=== PATIENT | male | born 1950 | race Caucasian/White ===

== ENCOUNTER 2017-02-18 19:14 | Inpatient (IN) | payer BC ==
[~2017-02-18] VITALS: Ht 193 cm; Wt 100.4 kg
[~2017-02-18 19:14] MED LIST: ALBU18HF INH; AMLO5TAB2 PO; AMLO5TAB4 PO; AMOX1TAB12 PO; ASPI-770 PO; ASPIRIN PO; BUDE10.2 INH; CEPH-368 PO; CLON0.1T PO; CYCL-259 PO; DIAZ10TA4 PO; ENAL20TA PO; ERYT250C8 PO; ERYT250T14 PO; FENO134C PO; FENT-58 TD; FINA5TAB4 PO; FISH OIL PO; FLUO20CA8 PO; FLUT1POW2 INH; FURO20TA3 PO; GABA600T PO; GABA600T2 PO; GEMF600T PO; GEMF600T3 PO; HYDR-3307 PO; INSU100I13 SC; IPRA4AER INH; IRON PO; LEVO137T3 PO; LORA-445 PO; MEPE50TA PO; METAMUCIL425 GM PO; METF850T2 PO; METO-93 PO; METO10TA82 PO; MORP30TA81 PO; MULT-658 PO; OMEG300C PO; OMEP40CA6 PO; ONDA4TAB10 PO; OXYC-229 PO; OXYC10TA6 PO; PROM25SU35 PO; SENN-31 PO; SIMV20TA PO; TAMS-11 PO; TAMS0.4C2 PO; TEMA30CA PO; TRAZ50TA18 PO; VITAMIN C PO; VITAMIN D PO; VITAMIN E PO
[2017-02-18] MEDS ORDERED: SODIUM CHLORIDE FLUSH 10ML SYR IVF ONE (20:00)
[2017-02-18 20:07] LABS: BLOOD UREA NITROGEN 19 mg/dL (7-18)
[2017-02-18 20:11] LABS: IS PT STATUS REG ER OR PRE ER? YES
[2017-02-18] MEDS ORDERED: OXYC10TA6 PO (20:42)
[2017-02-18] MEDS ORDERED: DULO30CA2 PO (20:42)
[2017-02-18] MEDS ORDERED: INSU100V8 SQ (20:42)
[2017-02-18] MEDS ORDERED: TIZA4CAP PO (20:42)
[2017-02-18] MEDS ORDERED: TAMS0.4C2 PO (20:42)
[2017-02-18] MEDS: METOPROLOL SUCCINATE 100 MG TAB.ER.24H PO SCH (21:30)
[2017-02-18] MEDS: TIZANIDINE 4MG TABLET PO SCH (21:30)
[2017-02-18] MEDS ORDERED: FENTANYL TD SCH (21:30)
[2017-02-18] MEDS ORDERED: ACETAMINOPHEN 325 MG TABLET PO PRN (21:30)
[2017-02-18] MEDS: AMLODIPINE 5 MG TABLET PO SCH (21:30)
[2017-02-18] MEDS: SIMVASTATIN 20 MG TABLET PO SCH (21:30)
[2017-02-18] MEDS: INSULIN DETEMIR 100 UNITS/ML, PEN SQ-INSULIN SCH (21:30)
[2017-02-18] MEDS ORDERED: PROMETHAZINE 25 MG/ML, 1ML IM PRN (21:30)
[2017-02-18] MEDS ORDERED: LABETALOL 5MG/ML, 20ML IV PRN (21:30)
[2017-02-18] MEDS: GABAPENTIN 300 MG CAPSULE PO SCH (21:30)
[2017-02-18] MEDS ORDERED: ONDANSETRON 2MG/ML, 2ML IVP PRN (21:30)
[2017-02-18] MEDS ORDERED: ONDANSETRON ODT 4 MG PO PRN (21:30)
[2017-02-18] MEDS ORDERED: ERYTHROMYCIN 200 MG/5 ML ORAL SOL PO SCH (21:30)
[2017-02-18 23:55] VITALS: BP 143/84
[2017-02-19] MEDS ORDERED: FENTANYL PATCH MC SCH (00:30)
[2017-02-19] MEDS: OXYcodone IR 5MG TABLET PO PRN ×3 (00:45→21:17)
[2017-02-19] MEDS: SODIUM CHLORIDE 0.9% 1,000 ML IV SCH ×3 (00:46→20:06)
[2017-02-19] MEDS: ENOXAPARIN 40 MG/0.4 ML SQ SCH ×2 (01:09→20:57)
[2017-02-19] MEDS: NICOTINE 14MG/24 HR PATCH.TD24 TD SCH ×2 (01:10→20:57)
[2017-02-19 01:18] VITALS: BP 143/84
[2017-02-19] MEDS: ASPIRIN 325 MG TABLET EC PO SCH (05:38)
[2017-02-19] MEDS: ERYTHROMYCIN 200 MG/5 ML ORAL SOL PO SCH ×4 (05:38→20:57)
[2017-02-19] MEDS: GABAPENTIN 300 MG CAPSULE PO SCH ×4 (05:38→20:56)
[2017-02-19 06:19] LABS: BLOOD UREA NITROGEN 19 mg/dL (7-18)
[2017-02-19 06:28] LABS: ASPARTATE AMINO TRANSFERASE 19 U/L (15-37)
[2017-02-19] MEDS: INSULIN REGULAR 100 UNITS/ML, 3ML VIAL SQ-INSULIN SCH ×4 (07:00→21:00)
[2017-02-19] MEDS ORDERED: LEVOTHYROXINE 137 MCG TABLET PO SCH (09:00)
[2017-02-19] MEDS: metFORMIN 850 MG TABLET PO SCH ×3 (09:00→20:56)
[2017-02-19] MEDS: FLUTICASONE/VILANTEROL 200-25MCG/INH INH SCH (09:00)
[2017-02-19] MEDS: SENNA/DOCUSATE TABLET PO SCH (09:00)
[2017-02-19 09:41] VITALS: BP 103/58
[2017-02-19] MEDS: TIZANIDINE 4MG TABLET PO SCH ×2 (10:03→20:57)
[2017-02-19] MEDS: METOPROLOL SUCCINATE 100 MG TAB.ER.24H PO SCH ×2 (10:03→20:56)
[2017-02-19] MEDS: AMLODIPINE 5 MG TABLET PO SCH ×2 (10:04→20:56)
[2017-02-19] MEDS: DULOXETINE 30 MG CAPSULE.DR PO SCH (10:04)
[2017-02-19] MEDS: TAMSULOSIN 0.4 MG CAP.ER.24H PO SCH (10:06)
[2017-02-19] MEDS: FUROSEMIDE 20 MG TABLET PO SCH (10:07)
[2017-02-19] MEDS: FINASTERIDE 5 MG TABLET PO SCH (10:07)
[2017-02-19] MEDS: FENOFIBRATE 145 MG TABLET PO SCH (10:10)
[2017-02-19] MEDS: OMEPRAZOLE 20 MG CAPSULE.DR PO SCH (10:11)
[2017-02-19 16:00] VITALS: BP 135/71
[2017-02-19] MEDS ORDERED: ALBUTEROL SULFATE PO PRN ×2 (16:00→16:08)
[2017-02-19 20:45] VITALS: BP 147/84
[2017-02-19] MEDS: SIMVASTATIN 20 MG TABLET PO SCH (20:56)
[2017-02-19] MEDS: INSULIN DETEMIR 100 UNITS/ML, PEN SQ-INSULIN SCH (20:58)
[2017-02-19] MEDS: CEFUROXIME 500 MG TABLET PO SCH (21:00)
[2017-02-20 02:00] VITALS: BP 141/78
[2017-02-20] MEDS: SODIUM CHLORIDE 0.9% 1,000 ML IV SCH ×2 (03:59→12:00)
[2017-02-20] MEDS ORDERED: DEXTROSE 50%, 50ML SYRINGE IVPush PRN (04:30)
[2017-02-20] MEDS ORDERED: GLUCAGON 1 MG IM PRN (04:30)
[2017-02-20] MEDS ORDERED: DEXTROSE 4 GM TAB.CHEW PO PRN (04:30)
[2017-02-20] MEDS: LEVOTHYROXINE 137 MCG TABLET PO SCH ×2 (06:00→10:22)
[2017-02-20] MEDS: GABAPENTIN 300 MG CAPSULE PO SCH ×4 (06:00→20:39)
[2017-02-20] MEDS: ERYTHROMYCIN 200 MG/5 ML ORAL SOL PO SCH ×4 (06:00→20:38)
[2017-02-20] MEDS: ASPIRIN 325 MG TABLET EC PO SCH (06:00)
[2017-02-20 08:06] VITALS: BP 179/88
[2017-02-20] MEDS ORDERED: LORazepam 2 MG/ML, 1ML IVPush ONE (08:30)
[2017-02-20] MEDS: INSULIN REGULAR 100 UNITS/ML, 3ML VIAL SQ-INSULIN SCH ×4 (08:30→20:40)
[2017-02-20] MEDS ORDERED: MIDAZOLAM 1 MG/ML, 5ML ONE (08:31)
[2017-02-20] MEDS ORDERED: FENTANYL PF 100 MCG/2ML ONE ×2 (08:31)
[2017-02-20] MEDS ORDERED: FLUMAZENIL 0.1 MG/1 ML, 5ML ONE (08:31)
[2017-02-20] MEDS ORDERED: NALOXONE 1 MG/ML, 2ML ONE (08:31)
[2017-02-20] MEDS: FLUTICASONE/VILANTEROL 200-25MCG/INH INH SCH (09:00)
[2017-02-20] MEDS: SENNA/DOCUSATE TABLET PO SCH (09:00)
[2017-02-20] MEDS: SODIUM CHLORIDE FLUSH 10ML SYR IVF SCH ×2 (10:08→20:38)
[2017-02-20] MEDS: CEFUROXIME 500 MG TABLET PO SCH ×2 (10:21→20:40)
[2017-02-20] MEDS: DULOXETINE 30 MG CAPSULE.DR PO SCH (10:21)
[2017-02-20] MEDS: TIZANIDINE 4MG TABLET PO SCH ×2 (10:21→20:39)
[2017-02-20] MEDS: AMLODIPINE 5 MG TABLET PO SCH ×2 (10:21→20:39)
[2017-02-20] MEDS: metFORMIN 850 MG TABLET PO SCH ×3 (10:22→20:39)
[2017-02-20] MEDS: TAMSULOSIN 0.4 MG CAP.ER.24H PO SCH (10:22)
[2017-02-20] MEDS: FUROSEMIDE 20 MG TABLET PO SCH (10:22)
[2017-02-20] MEDS: METOPROLOL SUCCINATE 100 MG TAB.ER.24H PO SCH ×2 (10:23→20:39)
[2017-02-20] MEDS: FINASTERIDE 5 MG TABLET PO SCH (10:23)
[2017-02-20] MEDS: FENOFIBRATE 145 MG TABLET PO SCH (10:23)
[2017-02-20] MEDS: OMEPRAZOLE 20 MG CAPSULE.DR PO SCH (10:23)
[2017-02-20 10:29] VITALS: BP 165/98
[2017-02-20] MEDS: OXYcodone IR 5MG TABLET PO PRN ×3 (13:39→23:41)
[2017-02-20 13:52] VITALS: BP 155/85
[2017-02-20] MEDS ORDERED: CLOPIDOGREL 300 MG TABLET PO ONE (15:00)
[2017-02-20 19:14] VITALS: BP 161/88
[2017-02-20] MEDS: SIMVASTATIN 20 MG TABLET PO SCH (20:38)
[2017-02-20] MEDS: ENOXAPARIN 40 MG/0.4 ML SQ SCH (20:41)
[2017-02-20] MEDS: INSULIN DETEMIR 100 UNITS/ML, PEN SQ-INSULIN SCH (20:41)
[2017-02-20] MEDS: NICOTINE 14MG/24 HR PATCH.TD24 TD SCH (20:42)
[2017-02-21 01:34] VITALS: BP 155/89
[2017-02-21] MEDS: TEMPLATE NON-FORMULARY MED. (albuterol sulfate 1 PUFF) IH PRN (02:21)
[2017-02-21] MEDS: ASPIRIN 325 MG TABLET EC PO SCH (05:36)
[2017-02-21] MEDS: GABAPENTIN 300 MG CAPSULE PO SCH ×3 (05:36→15:58)
[2017-02-21] MEDS: ERYTHROMYCIN 200 MG/5 ML ORAL SOL PO SCH ×4 (05:36→21:00)
[2017-02-21] MEDS: INSULIN REGULAR 100 UNITS/ML, 3ML VIAL SQ-INSULIN SCH ×4 (07:00→21:00)
[2017-02-21 07:38] VITALS: BP 151/89
[2017-02-21] MEDS: FLUTICASONE/VILANTEROL 200-25MCG/INH INH SCH (07:54)
[2017-02-21] MEDS: METOPROLOL SUCCINATE 100 MG TAB.ER.24H PO SCH ×2 (07:55→21:00)
[2017-02-21] MEDS: TIZANIDINE 4MG TABLET PO SCH (07:55)
[2017-02-21] MEDS: FENOFIBRATE 145 MG TABLET PO SCH (07:55)
[2017-02-21] MEDS: SENNA/DOCUSATE TABLET PO SCH (07:56)
[2017-02-21] MEDS: AMLODIPINE 5 MG TABLET PO SCH ×2 (07:56→21:00)
[2017-02-21] MEDS: TAMSULOSIN 0.4 MG CAP.ER.24H PO SCH (07:56)
[2017-02-21] MEDS: FINASTERIDE 5 MG TABLET PO SCH (07:56)
[2017-02-21] MEDS: FUROSEMIDE 20 MG TABLET PO SCH (07:56)
[2017-02-21] MEDS: DULOXETINE 30 MG CAPSULE.DR PO SCH (07:56)
[2017-02-21] MEDS: metFORMIN 850 MG TABLET PO SCH ×2 (07:56→15:58)
[2017-02-21] MEDS: OMEPRAZOLE 20 MG CAPSULE.DR PO SCH (07:56)
[2017-02-21] MEDS: CEFUROXIME 500 MG TABLET PO SCH (07:57)
[2017-02-21] MEDS: SODIUM CHLORIDE FLUSH 10ML SYR IVF SCH (07:59)
[2017-02-21 10:39] LABS: BLOOD UREA NITROGEN 19 mg/dL (7-18)
[2017-02-21 13:15] VITALS: BP 158/85
[2017-02-21] MEDS: CLOPIDOGREL 75 MG TABLET PO SCH (15:00)
[2017-02-21] MEDS ORDERED: HEPARIN 1,000 UNITS/ML, 10ML ONE ×2 (15:43→19:52)
[2017-02-21] MEDS ORDERED: PAPAVERINE 30 MG/ML, 2ML ONE (15:43)
[2017-02-21] MEDS ORDERED: BUPIVACAINE/PF-EPI 0.25% 1:200K ONE (15:43)
[2017-02-21] MEDS ORDERED: PROTAMINE SULFATE 10 MG/ML, 5ML ONE ×2 (15:43→19:52)
[2017-02-21] MEDS ORDERED: BACITRACIN 50,000 UNIT ONE (15:44)
[2017-02-21] MEDS ORDERED: THROMBIN 5,000 UNIT VIAL TP ONE ×3 (15:44→20:20)
[2017-02-21] MEDS ORDERED: LIDOCAINE 2% 100MG/5ML SYRINGE ONE (17:35)
[2017-02-21] MEDS ORDERED: CEFAZOLIN 1,000 MG ONE (17:35)
[2017-02-21] MEDS ORDERED: PROPOFOL 10 MG/ML, 20ML ONE (17:35)
[2017-02-21] MEDS ORDERED: ESMOLOL 100 MG/10 ML ONE (17:35)
[2017-02-21] MEDS ORDERED: PROTAMINE SULFATE 10 MG/ML, 25ML ONE (17:35)
[2017-02-21] MEDS ORDERED: ROCURONIUM 10 MG/ML ONE (17:35)
[2017-02-21] MEDS ORDERED: FENTANYL PF 250 MCG/5ML ONE (17:40)
[2017-02-21] MEDS ORDERED: hydrALAzine 20 MG/ML, 1ML IV PRN (19:00)
[2017-02-21] MEDS ORDERED: OXYcodone 5 MG/5 ML ORAL.SOL UDC PO PRN (19:00)
[2017-02-21] MEDS ORDERED: ONDANSETRON 2MG/ML, 2ML IVPush PRN (19:00)
[2017-02-21] MEDS ORDERED: PROMETHAZINE 25 MG/ML, 1ML IV PRN (19:00)
[2017-02-21] MEDS ORDERED: LABETALOL 5MG/ML, 20ML IV PRN (19:00)
[2017-02-21] MEDS ORDERED: FENTANYL PF 100 MCG/2ML ONE ×2 (20:56→22:56)
[2017-02-21] MEDS ORDERED: HYDROmorphone 2 MG/ML, 1ML ONE (20:56)
[2017-02-21] MEDS: FENTANYL PF 100 MCG/2ML IV PRN ×5 (21:00→23:43)
[2017-02-21] MEDS: PHENYLEPHRINE 10 MG in SODIUM CHLORIDE 0.9% 249 ML IV PRN ×9 (21:20→23:42)
[2017-02-21] MEDS ORDERED: ICN FENTANYL 4MCG/ML IV IVPush PRN (21:30)
[2017-02-21] MEDS: HYDROmorphone 1 MG/ML, 1ML IV PRN ×5 (21:40→22:39)
[2017-02-21] MEDS ORDERED: ONDANSETRON 2MG/ML, 2ML ONE (22:13)
[2017-02-21] MEDS ORDERED: OXYcodone 5 MG/5 ML ORAL.SOL UDC ONE (23:45)
[2017-02-22] MEDS: PHENYLEPHRINE 10 MG in SODIUM CHLORIDE 0.9% 249 ML IV PRN (00:02)
[2017-02-22] MEDS: SODIUM CHLORIDE FLUSH 10ML SYR IVF SCH ×3 (00:25→20:51)
[2017-02-22] MEDS: CEFUROXIME 500 MG TABLET PO SCH ×3 (01:51→20:50)
[2017-02-22] MEDS: metFORMIN 850 MG TABLET PO SCH ×3 (01:52→16:00)
[2017-02-22] MEDS: GABAPENTIN 300 MG CAPSULE PO SCH ×5 (01:52→20:50)
[2017-02-22] MEDS: TIZANIDINE 4MG TABLET PO SCH ×3 (01:52→20:50)
[2017-02-22] MEDS: SIMVASTATIN 20 MG TABLET PO SCH ×2 (01:52→20:50)
[2017-02-22] MEDS: NICOTINE 14MG/24 HR PATCH.TD24 TD SCH ×2 (01:53→21:00)
[2017-02-22] MEDS: INSULIN DETEMIR 100 UNITS/ML, PEN SQ-INSULIN SCH ×2 (01:53→20:58)
[2017-02-22] MEDS: LACTATED RINGERS 1,000 ML IV SCH ×2 (02:24→12:18)
[2017-02-22] MEDS: FENTANYL PF 100 MCG/2ML IVPush PRN ×3 (02:25→16:20)
[2017-02-22] MEDS: PHENYLEPHRINE 80 MG in SODIUM CHLORIDE 0.9% 242 ML IV PRN (03:15)
[2017-02-22 04:00] VITALS: BP 110/62
[2017-02-22] MEDS ORDERED: DIAZEPAM 5 MG TABLET ONE ×2 (05:17→13:55)
[2017-02-22] MEDS: DIAZEPAM 10 MG TABLET PO PRN ×2 (05:18→13:57)
[2017-02-22] MEDS: OXYcodone IR 5MG TABLET PO PRN ×4 (05:19→18:12)
[2017-02-22 05:28] LABS: ASPARTATE AMINO TRANSFERASE 58 U/L (15-37); BLOOD UREA NITROGEN 22 mg/dL (7-18)
[2017-02-22] MEDS: ERYTHROMYCIN 200 MG/5 ML ORAL SOL PO SCH ×4 (06:27→20:50)
[2017-02-22] MEDS: LEVOTHYROXINE 137 MCG TABLET PO SCH (06:28)
[2017-02-22] MEDS: INSULIN REGULAR 100 UNITS/ML, 3ML VIAL SQ-INSULIN SCH ×4 (07:00→21:00)
[2017-02-22] MEDS: CLOPIDOGREL 75 MG TABLET PO SCH (08:33)
[2017-02-22] MEDS: OMEPRAZOLE 20 MG CAPSULE.DR PO SCH (08:33)
[2017-02-22] MEDS: ASPIRIN 325 MG TABLET EC PO SCH (08:33)
[2017-02-22] MEDS: FINASTERIDE 5 MG TABLET PO SCH (08:33)
[2017-02-22] MEDS: TAMSULOSIN 0.4 MG CAP.ER.24H PO SCH (08:34)
[2017-02-22] MEDS: DULOXETINE 30 MG CAPSULE.DR PO SCH (08:34)
[2017-02-22] MEDS: FENOFIBRATE 145 MG TABLET PO SCH (08:34)
[2017-02-22] MEDS: SENNA/DOCUSATE TABLET PO SCH (08:34)
[2017-02-22] MEDS: FLUTICASONE/VILANTEROL 200-25MCG/INH INH SCH (08:35)
[2017-02-22] MEDS: AMLODIPINE 5 MG TABLET PO SCH (08:40)
[2017-02-22] MEDS: FUROSEMIDE 20 MG TABLET PO SCH (08:40)
[2017-02-22] MEDS: METOPROLOL SUCCINATE 100 MG TAB.ER.24H PO SCH (08:40)
[2017-02-22] MEDS ORDERED: MAGNESIUM SULFATE PMX 4GM/100M 100 ML IV ONE (16:00)
[2017-02-23] MEDS: OXYcodone IR 5MG TABLET PO PRN ×6 (01:17→22:15)
[2017-02-23] MEDS: LACTATED RINGERS 1,000 ML IV SCH (02:57)
[2017-02-23] MEDS: PHENYLEPHRINE 80 MG in SODIUM CHLORIDE 0.9% 242 ML IV PRN (02:58)
[2017-02-23 04:00] VITALS: BP 118/53
[2017-02-23 04:46] LABS: BLOOD UREA NITROGEN 16 mg/dL (7-18)
[2017-02-23 04:50] LABS: ASPARTATE AMINO TRANSFERASE 29 U/L (15-37)
[2017-02-23] MEDS: ERYTHROMYCIN 200 MG/5 ML ORAL SOL PO SCH ×4 (06:18→22:02)
[2017-02-23] MEDS: ASPIRIN 325 MG TABLET EC PO SCH (06:19)
[2017-02-23] MEDS: LEVOTHYROXINE 137 MCG TABLET PO SCH (06:19)
[2017-02-23] MEDS: GABAPENTIN 300 MG CAPSULE PO SCH ×4 (06:19→22:04)
[2017-02-23] MEDS: INSULIN REGULAR 100 UNITS/ML, 3ML VIAL SQ-INSULIN SCH ×4 (07:00→22:05)
[2017-02-23] MEDS: SENNA/DOCUSATE TABLET PO SCH (08:59)
[2017-02-23] MEDS: FINASTERIDE 5 MG TABLET PO SCH (08:59)
[2017-02-23] MEDS: TIZANIDINE 4MG TABLET PO SCH ×2 (08:59→22:04)
[2017-02-23] MEDS: FENOFIBRATE 145 MG TABLET PO SCH (08:59)
[2017-02-23] MEDS: OMEPRAZOLE 20 MG CAPSULE.DR PO SCH (09:00)
[2017-02-23] MEDS: FLUTICASONE/VILANTEROL 200-25MCG/INH INH SCH (09:00)
[2017-02-23] MEDS: TAMSULOSIN 0.4 MG CAP.ER.24H PO SCH (09:00)
[2017-02-23] MEDS: CLOPIDOGREL 75 MG TABLET PO SCH (09:00)
[2017-02-23] MEDS: CEFUROXIME 500 MG TABLET PO SCH ×2 (09:00→21:00)
[2017-02-23] MEDS: SODIUM CHLORIDE FLUSH 10ML SYR IVF SCH ×2 (09:00→22:15)
[2017-02-23] MEDS: DULOXETINE 30 MG CAPSULE.DR PO SCH (09:00)
[2017-02-23] MEDS: SODIUM CHLORIDE 0.9% 1,000 ML IV SCH ×3 (09:05→19:36)
[2017-02-23] MEDS ORDERED: DIAZEPAM 5 MG TABLET PO PRN (09:07)
[2017-02-23] MEDS: NICOTINE 14MG/24 HR PATCH.TD24 TD SCH (21:30)
[2017-02-23] MEDS: SIMVASTATIN 20 MG TABLET PO SCH (22:05)
[2017-02-23] MEDS: INSULIN DETEMIR 100 UNITS/ML, PEN SQ-INSULIN SCH (22:06)
[2017-02-23] MEDS: TRAZODONE 50MG TABLET PO PRN (22:15)
[2017-02-24] MEDS: SODIUM CHLORIDE 0.9% 1,000 ML IV SCH ×5 (00:08→20:12)
[2017-02-24 02:00] VITALS: BP 104/63
[2017-02-24] MEDS: OXYcodone IR 5MG TABLET PO PRN ×4 (02:20→21:59)
[2017-02-24] MEDS: ERYTHROMYCIN 200 MG/5 ML ORAL SOL PO SCH ×4 (06:22→20:14)
[2017-02-24] MEDS: LEVOTHYROXINE 137 MCG TABLET PO SCH (06:22)
[2017-02-24] MEDS: GABAPENTIN 300 MG CAPSULE PO SCH ×4 (06:23→20:14)
[2017-02-24] MEDS: ASPIRIN 325 MG TABLET EC PO SCH (06:23)
[2017-02-24 07:06] VITALS: BP 94/51
[2017-02-24] MEDS: INSULIN REGULAR 100 UNITS/ML, 3ML VIAL SQ-INSULIN SCH ×4 (08:00→20:12)
[2017-02-24] MEDS: TIZANIDINE 4MG TABLET PO SCH ×3 (09:00→20:15)
[2017-02-24] MEDS: FLUTICASONE/VILANTEROL 200-25MCG/INH INH SCH (09:00)
[2017-02-24] MEDS: CLOPIDOGREL 75 MG TABLET PO SCH (09:29)
[2017-02-24] MEDS: FENOFIBRATE 145 MG TABLET PO SCH (09:30)
[2017-02-24] MEDS: SODIUM CHLORIDE FLUSH 10ML SYR IVF SCH ×2 (09:30→20:14)
[2017-02-24] MEDS: DULOXETINE 30 MG CAPSULE.DR PO SCH (09:30)
[2017-02-24] MEDS: FINASTERIDE 5 MG TABLET PO SCH (09:30)
[2017-02-24] MEDS: CEFUROXIME 500 MG TABLET PO SCH ×2 (09:30→20:14)
[2017-02-24] MEDS: TAMSULOSIN 0.4 MG CAP.ER.24H PO SCH (09:30)
[2017-02-24] MEDS: OMEPRAZOLE 20 MG CAPSULE.DR PO SCH (09:30)
[2017-02-24] MEDS: SENNA/DOCUSATE TABLET PO SCH (09:58)
[2017-02-24 13:37] VITALS: BP 112/59
[2017-02-24 19:44] VITALS: BP 128/67
[2017-02-24] MEDS: INSULIN DETEMIR 100 UNITS/ML, PEN SQ-INSULIN SCH (20:13)
[2017-02-24] MEDS: NICOTINE 14MG/24 HR PATCH.TD24 TD SCH (20:15)
[2017-02-24] MEDS: SIMVASTATIN 20 MG TABLET PO SCH (20:15)
[2017-02-24] MEDS: TRAZODONE 50MG TABLET PO PRN (20:15)
[2017-02-24] MEDS ORDERED: DIAZEPAM 10 MG TABLET ONE (21:43)
[2017-02-24] MEDS: TEMPLATE NON-FORMULARY MED. (albuterol sulfate 1 PUFF) IH PRN (22:27)
[2017-02-25] MEDS: SODIUM CHLORIDE 0.9% 1,000 ML IV SCH ×3 (01:19→11:12)
[2017-02-25 01:43] VITALS: BP 123/66
[2017-02-25] MEDS: OXYcodone IR 5MG TABLET PO PRN ×3 (01:58→11:12)
[2017-02-25 04:59] LABS: BLOOD UREA NITROGEN 8 mg/dL (7-18)
[2017-02-25] MEDS: ERYTHROMYCIN 200 MG/5 ML ORAL SOL PO SCH ×2 (05:59→11:12)
[2017-02-25] MEDS: ASPIRIN 325 MG TABLET EC PO SCH (05:59)
[2017-02-25] MEDS: GABAPENTIN 300 MG CAPSULE PO SCH ×2 (05:59→11:12)
[2017-02-25] MEDS: LEVOTHYROXINE 137 MCG TABLET PO SCH (05:59)
[2017-02-25 07:15] VITALS: BP 123/61
[2017-02-25] MEDS: OMEPRAZOLE 20 MG CAPSULE.DR PO SCH (09:42)
[2017-02-25] MEDS: TIZANIDINE 4MG TABLET PO SCH (09:42)
[2017-02-25] MEDS: SENNA/DOCUSATE TABLET PO SCH (09:42)
[2017-02-25] MEDS: DULOXETINE 30 MG CAPSULE.DR PO SCH (09:42)
[2017-02-25] MEDS: CEFUROXIME 500 MG TABLET PO SCH (09:42)
[2017-02-25] MEDS: SODIUM CHLORIDE FLUSH 10ML SYR IVF SCH (09:42)
[2017-02-25] MEDS: FINASTERIDE 5 MG TABLET PO SCH (09:42)
[2017-02-25] MEDS: CLOPIDOGREL 75 MG TABLET PO SCH (09:42)
[2017-02-25] MEDS: TAMSULOSIN 0.4 MG CAP.ER.24H PO SCH (09:42)
[2017-02-25] MEDS: INSULIN REGULAR 100 UNITS/ML, 3ML VIAL SQ-INSULIN SCH ×2 (09:43→11:12)
[2017-02-25] MEDS: FENOFIBRATE 145 MG TABLET PO SCH (09:45)
[2017-02-25] MEDS: FLUTICASONE/VILANTEROL 200-25MCG/INH INH SCH (10:45)
[2017-02-25] MEDS ORDERED: CLOP75TA PO (14:09)
[2017-02-25] MEDS ORDERED: ASPI-650 PO (14:09)
== END 2017-02-25 15:03 | disposition home health service (06) | DRG 38 ==
LOC: SUATTDRO 21:00 → ED 21:04 → EDIP 22:19 → 4EST 23:22 → CCU 02-22 00:24 → 4EST 02-24 02:01
PROC: 0T9B70Z Drainage of Bladder with Drainage Device, Via Natural or Artificial Opening (ICD-10-PCS; 2017-02-19)
PROC: 03UL0KZ Supplement Left Internal Carotid Artery with Nonautologous Tissue Substitute, Open Approach (ICD-10-PCS; 2017-02-21)
PROC: 03CL0ZZ Extirpation of Matter from Left Internal Carotid Artery, Open Approach (ICD-10-PCS; principal; 2017-02-21 17:30)
DX: I65.22 Occlusion and stenosis of left carotid artery (principal); N17.9 Acute kidney failure, unspecified; F11.20 Opioid dependence, uncomplicated; D72.829 Elevated white blood cell count, unspecified; E11.42 Type 2 diabetes mellitus with diabetic polyneuropathy; E11.43 Type 2 diabetes mellitus with diabetic autonomic (poly)neuropathy; E11.65 Type 2 diabetes mellitus with hyperglycemia; K31.84 Gastroparesis; E78.5 Hyperlipidemia, unspecified; F17.210 Nicotine dependence, cigarettes, uncomplicated; E83.42 Hypomagnesemia; M54.9 Dorsalgia, unspecified; F40.240 Claustrophobia; I95.9 Hypotension, unspecified; G47.30 Sleep apnea, unspecified; I11.9 Hypertensive heart disease without heart failure; G89.29 Other chronic pain; J44.9 Chronic obstructive pulmonary disease, unspecified; N40.0 Benign prostatic hyperplasia without lower urinary tract symptoms; E89.0 Postprocedural hypothyroidism; F32.9 Major depressive disorder, single episode, unspecified; I25.10 Atherosclerotic heart disease of native coronary artery without angina pectoris; I25.2 Old myocardial infarction; Z86.73 Personal history of transient ischemic attack (TIA), and cerebral infarction without residual deficits; Z79.4 Long term (current) use of insulin; Z90.49 Acquired absence of other specified parts of digestive tract; Z91.013 Allergy to seafood; Z79.899 Other long term (current) drug therapy; Z79.82 Long term (current) use of aspirin; Z79.84 Long term (current) use of oral hypoglycemic drugs
CPT/HCPCS: 36415; 70450; 70551; 71010; 80048; 80053; 80061; 81003; 82040; 82436; 82570; 82962; 83036; 83735; 84100; 84133; 84300; 84439; 84443; 84484; 85025; 85610; 85730; 87081; 93005; 93306; 93880; C1729; J0690; J1170; J1644; J1650; J1815; J2250; J2405; J2704; J2720; J3010; 92523-GN; C1768; J2310; J2370; J2440; J3475; J7030; J7050; J7120

== ENCOUNTER 2017-03-02 02:17 | Inpatient (IN) | payer BC ==
[~2017-03-02] VITALS: Ht 193 cm; Wt 97.2 kg
[~2017-03-02 02:17] MED LIST changes: +ASPI-650 PO; +CLOP75TA PO; +DULO30CA2 PO; +INSU100V8 SQ; +TIZA4CAP PO
[2017-03-02] MEDS ORDERED: MORPHINE SULFATE 4 MG/ML, 1ML ONE (03:02)
[2017-03-02 03:04] LABS: BLOOD UREA NITROGEN 10 mg/dL (7-18)
[2017-03-02] MEDS ORDERED: ONDANSETRON 2MG/ML, 2ML ONE (03:04)
[2017-03-02 03:09] LABS: IS PT STATUS REG ER OR PRE ER? YES
[2017-03-02] MEDS ORDERED: MORPHINE SULFATE 4 MG/ML, 1ML IVPush PRN ×2 (03:30→04:00)
[2017-03-02] MEDS ORDERED: ONDANSETRON 2MG/ML, 2ML IVPush ONE (03:30)
[2017-03-02] MEDS ORDERED: FUROSEMIDE 40 MG/4 ML ONE (03:34)
[2017-03-02] MEDS ORDERED: ONDANSETRON 2MG/ML, 2ML IVPush PRN (04:00)
[2017-03-02] MEDS ORDERED: FUROSEMIDE 40 MG/4 ML IV ONE ×2 (04:00→12:30)
[2017-03-02 04:20] VITALS: BP 123/74
[2017-03-02] MEDS ORDERED: MAGNESIUM SULFATE PMX 2GM/50ML 50 ML IV ONE (05:00)
[2017-03-02] MEDS: GABAPENTIN 300 MG CAPSULE PO SCH ×4 (05:25→21:00)
[2017-03-02] MEDS ORDERED: SYMBICORT MC SCH (05:30)
[2017-03-02] MEDS ORDERED: POLYETHYLENE GLYCOL 17 GM PACKET PO PRN (06:00)
[2017-03-02] MEDS ORDERED: ENALAPRILAT 1.25 MG/ML, 2ML IVPush PRN (06:00)
[2017-03-02] MEDS ORDERED: ACETAMINOPHEN 325 MG TABLET PO PRN (06:00)
[2017-03-02] MEDS ORDERED: BISACODYL 10 MG SUPP PR PRN (06:00)
[2017-03-02] MEDS ORDERED: ONDANSETRON 2MG/ML, 2ML IVP PRN (06:00)
[2017-03-02] MEDS ORDERED: ASPIRIN 325 MG TABLET EC PO SCH (06:00)
[2017-03-02 06:56] VITALS: BP 128/71
[2017-03-02] MEDS ORDERED: MORPHINE SULFATE 4 MG/ML, 1ML IVPush ONE (07:00)
[2017-03-02] MEDS ORDERED: FUROSEMIDE 20 MG/2 ML IV SCH (07:30)
[2017-03-02] MEDS ORDERED: MAGNESIUM SULFATE PMX 4GM/100M 100 ML IV ONE (08:30)
[2017-03-02] MEDS ORDERED: TEMPLATE NON-FORMULARY MED. (Oxycodone Hcl** 10 MG) PO SCH (08:30)
[2017-03-02 08:33] VITALS: BP 139/81
[2017-03-02] MEDS: TAMSULOSIN 0.4 MG CAP.ER.24H PO SCH (08:35)
[2017-03-02] MEDS: HEPARIN 5,000 UNITS/ML, 1ML SQ SCH ×3 (08:35→22:39)
[2017-03-02] MEDS: TIZANIDINE 4MG TABLET PO SCH ×2 (08:35→21:01)
[2017-03-02] MEDS: MAGNESIUM CHLORIDE 64 MG TABLET.DR PO SCH ×2 (08:36→21:00)
[2017-03-02] MEDS: METOPROLOL SUCCINATE 100 MG TAB.ER.24H PO SCH ×2 (08:36→21:01)
[2017-03-02] MEDS: OMEPRAZOLE 20 MG CAPSULE.DR PO SCH (08:36)
[2017-03-02] MEDS: DULOXETINE 30 MG CAPSULE.DR PO SCH (08:36)
[2017-03-02] MEDS: CLOPIDOGREL 75 MG TABLET PO SCH (08:37)
[2017-03-02] MEDS: AMLODIPINE 5 MG TABLET PO SCH (08:37)
[2017-03-02] MEDS: FENOFIBRATE 145 MG TABLET PO SCH (08:37)
[2017-03-02] MEDS: FINASTERIDE 5 MG TABLET PO SCH (08:37)
[2017-03-02] MEDS: SENNA/DOCUSATE TABLET PO SCH (08:39)
[2017-03-02] MEDS ORDERED: TEMPLATE NON-FORMULARY MED. (Budesonide/Formoterol Fumarate (Symbicort 160-4.5 Mcg Inhaler INH SCH (09:00)
[2017-03-02] MEDS ORDERED: AMLODIPINE 5 MG TABLET PO SCH ×2 (09:00)
[2017-03-02] MEDS ORDERED: SENNA/DOCUSATE TABLET PO SCH (09:00)
[2017-03-02] MEDS ORDERED: metFORMIN 850 MG TABLET PO SCH (09:00)
[2017-03-02] MEDS ORDERED: LEVOTHYROXINE 137 MCG TABLET PO SCH (09:00)
[2017-03-02] MEDS: ALBUTEROL/IPRATROPIUM 2.5MG/0.5MG, 3 ML NPPB SCH ×4 (09:08→20:45)
[2017-03-02 09:51] LABS: IS PT STATUS REG ER OR PRE ER? NO
[2017-03-02] MEDS: methylPREDNISolone SOD SUCC 40 MG/ML IV SCH ×3 (09:51→21:02)
[2017-03-02] MEDS: LEVOTHYROXINE 125 MCG TABLET PO SCH (09:58)
[2017-03-02] MEDS: FLUTICASONE/VILANTEROL 200-25MCG/INH INH SCH (11:12)
[2017-03-02 12:06] VITALS: BP 114/67
[2017-03-02 12:08] LABS: BLOOD UREA NITROGEN 12 mg/dL (7-18)
[2017-03-02] MEDS: OXYcodone IR 5MG TABLET PO PRN ×3 (12:28→21:16)
[2017-03-02] MEDS ORDERED: DIAZEPAM 5 MG TABLET ONE ×2 (14:26)
[2017-03-02] MEDS: DIAZEPAM 10 MG TABLET PO PRN (14:29)
[2017-03-02 17:18] VITALS: BP 122/62
[2017-03-02] MEDS: FUROSEMIDE 20 MG/2 ML IV SCH (17:24)
[2017-03-02 19:25] VITALS: BP 115/65
[2017-03-02] MEDS: SIMVASTATIN 20 MG TABLET PO SCH (21:00)
[2017-03-02] MEDS: INSULIN DETEMIR 100 UNITS/ML, PEN SQ-INSULIN SCH (21:16)
[2017-03-02] MEDS: MORPHINE SULFATE 4 MG/ML, 1ML IVPush PRN (22:38)
[2017-03-03] MEDS: GUAIFENESIN 100 MG/5 ML, 5ML UDC PO PRN ×3 (00:26→21:13)
[2017-03-03 01:06] VITALS: BP 104/55
[2017-03-03] MEDS: methylPREDNISolone SOD SUCC 40 MG/ML IV SCH ×4 (02:58→21:13)
[2017-03-03 05:47] LABS: BLOOD UREA NITROGEN 22 mg/dL (7-18)
[2017-03-03 05:52] LABS: ASPARTATE AMINO TRANSFERASE 16 U/L (15-37)
[2017-03-03] MEDS: ASPIRIN 81 MG TABLET EC PO SCH (06:05)
[2017-03-03] MEDS: OXYcodone IR 5MG TABLET PO PRN ×4 (06:05→19:56)
[2017-03-03] MEDS: GABAPENTIN 300 MG CAPSULE PO SCH ×4 (06:06→21:14)
[2017-03-03] MEDS: HEPARIN 5,000 UNITS/ML, 1ML SQ SCH ×3 (06:06→21:15)
[2017-03-03] MEDS: ALBUTEROL/IPRATROPIUM 2.5MG/0.5MG, 3 ML NPPB SCH ×4 (08:10→19:52)
[2017-03-03 09:00] VITALS: BP 143/84
[2017-03-03] MEDS: DULOXETINE 30 MG CAPSULE.DR PO SCH (09:54)
[2017-03-03] MEDS: AMLODIPINE 5 MG TABLET PO SCH (09:54)
[2017-03-03] MEDS: FLUTICASONE/VILANTEROL 200-25MCG/INH INH SCH (09:54)
[2017-03-03] MEDS: FUROSEMIDE 20 MG/2 ML IV SCH ×2 (09:55→16:31)
[2017-03-03] MEDS: TIZANIDINE 4MG TABLET PO SCH ×2 (09:55→21:14)
[2017-03-03] MEDS: OMEPRAZOLE 20 MG CAPSULE.DR PO SCH (09:55)
[2017-03-03] MEDS: FINASTERIDE 5 MG TABLET PO SCH (09:56)
[2017-03-03] MEDS: CLOPIDOGREL 75 MG TABLET PO SCH (09:56)
[2017-03-03] MEDS: METOPROLOL SUCCINATE 100 MG TAB.ER.24H PO SCH ×2 (09:56→21:14)
[2017-03-03] MEDS: FENOFIBRATE 145 MG TABLET PO SCH (09:56)
[2017-03-03] MEDS: SENNA/DOCUSATE TABLET PO SCH (09:56)
[2017-03-03] MEDS: MAGNESIUM CHLORIDE 64 MG TABLET.DR PO SCH ×2 (09:57→21:14)
[2017-03-03] MEDS: TAMSULOSIN 0.4 MG CAP.ER.24H PO SCH (09:57)
[2017-03-03] MEDS: LEVOTHYROXINE 125 MCG TABLET PO SCH (09:57)
[2017-03-03] MEDS ORDERED: DIAZEPAM 5 MG TABLET ONE (14:29)
[2017-03-03] MEDS: DIAZEPAM 10 MG TABLET PO PRN (14:41)
[2017-03-03] MEDS: INSULIN ASPART 100 UNITS/ML, PEN SQ-INSULIN SCH ×2 (17:40→21:13)
[2017-03-03 20:19] VITALS: BP 108/61
[2017-03-03] MEDS: INSULIN DETEMIR 100 UNITS/ML, PEN SQ-INSULIN SCH (21:13)
[2017-03-03] MEDS: SIMVASTATIN 20 MG TABLET PO SCH (21:14)
[2017-03-03] MEDS: MORPHINE SULFATE 4 MG/ML, 1ML IVPush PRN (22:15)
[2017-03-04 00:48] VITALS: BP 107/70
[2017-03-04] MEDS: methylPREDNISolone SOD SUCC 40 MG/ML IV SCH (03:03)
[2017-03-04] MEDS: OXYcodone IR 5MG TABLET PO PRN ×4 (03:10→20:34)
[2017-03-04] MEDS: GABAPENTIN 300 MG CAPSULE PO SCH ×4 (05:52→20:15)
[2017-03-04] MEDS: HEPARIN 5,000 UNITS/ML, 1ML SQ SCH ×3 (05:52→21:29)
[2017-03-04] MEDS: ASPIRIN 81 MG TABLET EC PO SCH (05:52)
[2017-03-04 06:02] LABS: BLOOD UREA NITROGEN 39 mg/dL (7-18)
[2017-03-04] MEDS: ALBUTEROL/IPRATROPIUM 2.5MG/0.5MG, 3 ML NPPB SCH ×4 (06:35→20:00)
[2017-03-04] MEDS: INSULIN ASPART 100 UNITS/ML, PEN SQ-INSULIN SCH ×4 (08:00→20:20)
[2017-03-04] MEDS: FUROSEMIDE 20 MG/2 ML IV SCH ×2 (08:01→17:43)
[2017-03-04] MEDS: DULOXETINE 30 MG CAPSULE.DR PO SCH (08:02)
[2017-03-04] MEDS: FLUTICASONE/VILANTEROL 200-25MCG/INH INH SCH (08:02)
[2017-03-04] MEDS: LEVOTHYROXINE 125 MCG TABLET PO SCH (08:05)
[2017-03-04] MEDS: MAGNESIUM CHLORIDE 64 MG TABLET.DR PO SCH ×2 (08:05→20:16)
[2017-03-04] MEDS: FENOFIBRATE 145 MG TABLET PO SCH (08:05)
[2017-03-04] MEDS: TAMSULOSIN 0.4 MG CAP.ER.24H PO SCH (08:05)
[2017-03-04] MEDS: SENNA/DOCUSATE TABLET PO SCH (08:05)
[2017-03-04] MEDS: METOPROLOL SUCCINATE 100 MG TAB.ER.24H PO SCH ×2 (08:05→20:15)
[2017-03-04] MEDS: TIZANIDINE 4MG TABLET PO SCH ×2 (08:05→20:15)
[2017-03-04] MEDS: CLOPIDOGREL 75 MG TABLET PO SCH (08:06)
[2017-03-04] MEDS: OMEPRAZOLE 20 MG CAPSULE.DR PO SCH (08:06)
[2017-03-04] MEDS: AMLODIPINE 5 MG TABLET PO SCH (08:06)
[2017-03-04 08:24] VITALS: BP 144/72
[2017-03-04] MEDS: FINASTERIDE 5 MG TABLET PO SCH (08:54)
[2017-03-04 12:37] VITALS: BP 147/77
[2017-03-04] MEDS: GUAIFENESIN 100 MG/5 ML, 5ML UDC PO PRN ×2 (14:46→21:29)
[2017-03-04] MEDS: MORPHINE SULFATE 4 MG/ML, 1ML IVPush PRN ×2 (14:46→17:45)
[2017-03-04 19:56] VITALS: BP 130/65
[2017-03-04] MEDS: SIMVASTATIN 20 MG TABLET PO SCH (20:16)
[2017-03-04] MEDS: INSULIN DETEMIR 100 UNITS/ML, PEN SQ-INSULIN SCH (20:19)
[2017-03-05 04:37] VITALS: BP 136/75
[2017-03-05] MEDS: HEPARIN 5,000 UNITS/ML, 1ML SQ SCH ×3 (06:01→22:05)
[2017-03-05] MEDS: ASPIRIN 81 MG TABLET EC PO SCH (06:01)
[2017-03-05] MEDS: GABAPENTIN 300 MG CAPSULE PO SCH ×4 (06:01→19:37)
[2017-03-05 07:14] VITALS: BP 143/74
[2017-03-05] MEDS: ALBUTEROL/IPRATROPIUM 2.5MG/0.5MG, 3 ML NPPB SCH ×4 (07:23→18:33)
[2017-03-05] MEDS: TIZANIDINE 4MG TABLET PO SCH ×2 (08:41→19:37)
[2017-03-05] MEDS: FENOFIBRATE 145 MG TABLET PO SCH (08:41)
[2017-03-05] MEDS: FINASTERIDE 5 MG TABLET PO SCH (08:42)
[2017-03-05] MEDS: LEVOTHYROXINE 125 MCG TABLET PO SCH (08:42)
[2017-03-05] MEDS: MAGNESIUM CHLORIDE 64 MG TABLET.DR PO SCH ×2 (08:42→19:37)
[2017-03-05] MEDS: CLOPIDOGREL 75 MG TABLET PO SCH (08:42)
[2017-03-05] MEDS: SENNA/DOCUSATE TABLET PO SCH (08:42)
[2017-03-05] MEDS: AMLODIPINE 5 MG TABLET PO SCH (08:42)
[2017-03-05] MEDS: METOPROLOL SUCCINATE 100 MG TAB.ER.24H PO SCH ×2 (08:42→19:37)
[2017-03-05] MEDS: TAMSULOSIN 0.4 MG CAP.ER.24H PO SCH (08:42)
[2017-03-05] MEDS: OMEPRAZOLE 20 MG CAPSULE.DR PO SCH (08:42)
[2017-03-05] MEDS: FUROSEMIDE 20 MG/2 ML IV SCH ×2 (08:43→17:46)
[2017-03-05] MEDS: FLUTICASONE/VILANTEROL 200-25MCG/INH INH SCH (08:43)
[2017-03-05] MEDS: DULOXETINE 30 MG CAPSULE.DR PO SCH (08:43)
[2017-03-05] MEDS: INSULIN ASPART 100 UNITS/ML, PEN SQ-INSULIN SCH ×4 (08:44→20:24)
[2017-03-05 13:19] VITALS: BP 103/55
[2017-03-05] MEDS: OXYcodone IR 5MG TABLET PO PRN ×2 (14:18→19:37)
[2017-03-05] MEDS: MORPHINE SULFATE 4 MG/ML, 1ML IVPush PRN (15:55)
[2017-03-05 17:46] VITALS: BP 148/76
[2017-03-05 19:09] VITALS: BP 128/75
[2017-03-05] MEDS: SIMVASTATIN 20 MG TABLET PO SCH (19:37)
[2017-03-05] MEDS: INSULIN DETEMIR 100 UNITS/ML, PEN SQ-INSULIN SCH (20:24)
[2017-03-06 01:37] VITALS: BP 128/66
[2017-03-06 04:50] LABS: BLOOD UREA NITROGEN 40 mg/dL (7-18)
[2017-03-06] MEDS: ASPIRIN 81 MG TABLET EC PO SCH (05:47)
[2017-03-06] MEDS: HEPARIN 5,000 UNITS/ML, 1ML SQ SCH ×3 (05:47→23:44)
[2017-03-06] MEDS: GABAPENTIN 300 MG CAPSULE PO SCH ×4 (05:47→20:26)
[2017-03-06 07:29] VITALS: BP 158/80
[2017-03-06] MEDS: ALBUTEROL/IPRATROPIUM 2.5MG/0.5MG, 3 ML NPPB SCH ×4 (07:48→21:00)
[2017-03-06] MEDS: FLUTICASONE/VILANTEROL 200-25MCG/INH INH SCH (08:57)
[2017-03-06] MEDS: INSULIN ASPART 100 UNITS/ML, PEN SQ-INSULIN SCH ×4 (08:57→21:12)
[2017-03-06] MEDS: SENNA/DOCUSATE TABLET PO SCH (08:58)
[2017-03-06] MEDS: FUROSEMIDE 20 MG/2 ML IV SCH ×2 (08:58→16:34)
[2017-03-06] MEDS: METOPROLOL SUCCINATE 100 MG TAB.ER.24H PO SCH ×2 (08:59→20:26)
[2017-03-06] MEDS: MAGNESIUM CHLORIDE 64 MG TABLET.DR PO SCH ×2 (08:59→20:26)
[2017-03-06] MEDS: TIZANIDINE 4MG TABLET PO SCH ×2 (08:59→20:27)
[2017-03-06] MEDS: CLOPIDOGREL 75 MG TABLET PO SCH (08:59)
[2017-03-06] MEDS: TAMSULOSIN 0.4 MG CAP.ER.24H PO SCH (08:59)
[2017-03-06] MEDS: OMEPRAZOLE 20 MG CAPSULE.DR PO SCH (08:59)
[2017-03-06] MEDS: FENOFIBRATE 145 MG TABLET PO SCH (08:59)
[2017-03-06] MEDS: LEVOTHYROXINE 125 MCG TABLET PO SCH (09:00)
[2017-03-06] MEDS: FINASTERIDE 5 MG TABLET PO SCH (09:00)
[2017-03-06] MEDS: AMLODIPINE 5 MG TABLET PO SCH (09:00)
[2017-03-06] MEDS: DULOXETINE 30 MG CAPSULE.DR PO SCH (09:00)
[2017-03-06] MEDS: OXYcodone IR 5MG TABLET PO PRN ×2 (09:20→16:33)
[2017-03-06] MEDS: POTASSIUM CHLORIDE 20 MEQ TAB.ER.PRT PO SCH (10:30)
[2017-03-06 14:33] VITALS: BP 136/76
[2017-03-06 18:38] VITALS: BP 136/70
[2017-03-06] MEDS: SIMVASTATIN 20 MG TABLET PO SCH (20:26)
[2017-03-06] MEDS: MORPHINE SULFATE 4 MG/ML, 1ML IVPush PRN ×2 (20:27→23:43)
[2017-03-06] MEDS: INSULIN DETEMIR 100 UNITS/ML, PEN SQ-INSULIN SCH (21:12)
[2017-03-07 01:09] VITALS: BP 151/73
[2017-03-07] MEDS: ASPIRIN 81 MG TABLET EC PO SCH (05:45)
[2017-03-07] MEDS: GABAPENTIN 300 MG CAPSULE PO SCH ×4 (05:45→20:50)
[2017-03-07] MEDS: ALBUTEROL/IPRATROPIUM 2.5MG/0.5MG, 3 ML NPPB SCH ×4 (07:05→19:45)
[2017-03-07 07:11] VITALS: BP 123/77
[2017-03-07] MEDS: MAGNESIUM CHLORIDE 64 MG TABLET.DR PO SCH ×2 (08:15→20:50)
[2017-03-07] MEDS: FENOFIBRATE 145 MG TABLET PO SCH (08:15)
[2017-03-07] MEDS: LEVOTHYROXINE 125 MCG TABLET PO SCH (08:15)
[2017-03-07] MEDS: METOPROLOL SUCCINATE 100 MG TAB.ER.24H PO SCH ×2 (08:15→20:50)
[2017-03-07] MEDS: TIZANIDINE 4MG TABLET PO SCH ×2 (08:15→20:50)
[2017-03-07] MEDS: AMLODIPINE 5 MG TABLET PO SCH (08:16)
[2017-03-07] MEDS: TAMSULOSIN 0.4 MG CAP.ER.24H PO SCH (08:16)
[2017-03-07] MEDS: CLOPIDOGREL 75 MG TABLET PO SCH (08:16)
[2017-03-07] MEDS: POTASSIUM CHLORIDE 20 MEQ TAB.ER.PRT PO SCH (08:16)
[2017-03-07] MEDS: FINASTERIDE 5 MG TABLET PO SCH (08:16)
[2017-03-07] MEDS: SENNA/DOCUSATE TABLET PO SCH (08:16)
[2017-03-07] MEDS: OMEPRAZOLE 20 MG CAPSULE.DR PO SCH (08:16)
[2017-03-07] MEDS: INSULIN ASPART 100 UNITS/ML, PEN SQ-INSULIN SCH ×4 (08:17→20:53)
[2017-03-07] MEDS: HEPARIN 5,000 UNITS/ML, 1ML SQ SCH ×2 (08:17→17:05)
[2017-03-07] MEDS: DULOXETINE 30 MG CAPSULE.DR PO SCH (08:18)
[2017-03-07] MEDS: FUROSEMIDE 20 MG/2 ML IV SCH (08:18)
[2017-03-07] MEDS: FLUTICASONE/VILANTEROL 200-25MCG/INH INH SCH (08:18)
[2017-03-07] MEDS: predniSONE 50MG TABLET PO SCH (08:29)
[2017-03-07 08:56] LABS: BLOOD UREA NITROGEN 35 mg/dL (7-18)
[2017-03-07 12:13] VITALS: BP 114/67
[2017-03-07] MEDS: GUAIFENESIN 100 MG/5 ML, 5ML UDC PO SCH ×3 (12:19→20:51)
[2017-03-07] MEDS ORDERED: ENALAPRILAT 1.25 MG/ML, 2ML IVPush PRN (12:23)
[2017-03-07] MEDS ORDERED: AcetaZOLAMIDE INJ 500 MG IVPush ONE (13:00)
[2017-03-07] MEDS ORDERED: FURO20TA3 PO (15:20)
[2017-03-07] MEDS ORDERED: AMLO5TAB2 PO (15:20)
[2017-03-07] MEDS ORDERED: ASPI-650 PO (15:20)
[2017-03-07] MEDS ORDERED: LEVO125T PO (15:20)
[2017-03-07] MEDS ORDERED: PRED20TA PO (15:20)
[2017-03-07] MEDS: OXYcodone IR 5MG TABLET PO PRN (17:25)
[2017-03-07 20:24] VITALS: BP 133/66
[2017-03-07] MEDS: SIMVASTATIN 20 MG TABLET PO SCH (20:50)
[2017-03-07] MEDS: INSULIN DETEMIR 100 UNITS/ML, PEN SQ-INSULIN SCH (20:52)
[2017-03-08 02:22] VITALS: BP 132/72
[2017-03-08] MEDS: ASPIRIN 81 MG TABLET EC PO SCH (05:37)
[2017-03-08] MEDS: GUAIFENESIN 100 MG/5 ML, 5ML UDC PO SCH ×2 (05:37→10:41)
[2017-03-08] MEDS: GABAPENTIN 300 MG CAPSULE PO SCH ×2 (05:37→10:41)
[2017-03-08] MEDS: HEPARIN 5,000 UNITS/ML, 1ML SQ SCH (05:37)
[2017-03-08] MEDS: ALBUTEROL/IPRATROPIUM 2.5MG/0.5MG, 3 ML NPPB SCH (06:00)
[2017-03-08 06:51] VITALS: BP 148/80
[2017-03-08] MEDS ORDERED: FUROSEMIDE 20 MG/2 ML IV SCH (09:00)
[2017-03-08] MEDS: TIZANIDINE 4MG TABLET PO SCH (09:09)
[2017-03-08] MEDS: METOPROLOL SUCCINATE 100 MG TAB.ER.24H PO SCH (09:09)
[2017-03-08] MEDS: OMEPRAZOLE 20 MG CAPSULE.DR PO SCH (09:09)
[2017-03-08] MEDS: SENNA/DOCUSATE TABLET PO SCH (09:09)
[2017-03-08] MEDS: FENOFIBRATE 145 MG TABLET PO SCH (09:09)
[2017-03-08] MEDS: MAGNESIUM CHLORIDE 64 MG TABLET.DR PO SCH (09:09)
[2017-03-08] MEDS: predniSONE 50MG TABLET PO SCH (09:09)
[2017-03-08] MEDS: LEVOTHYROXINE 125 MCG TABLET PO SCH (09:09)
[2017-03-08] MEDS: CLOPIDOGREL 75 MG TABLET PO SCH (09:10)
[2017-03-08] MEDS: TAMSULOSIN 0.4 MG CAP.ER.24H PO SCH (09:10)
[2017-03-08] MEDS: FLUTICASONE/VILANTEROL 200-25MCG/INH INH SCH (09:10)
[2017-03-08] MEDS: DULOXETINE 30 MG CAPSULE.DR PO SCH (09:10)
[2017-03-08] MEDS: AMLODIPINE 5 MG TABLET PO SCH (09:10)
[2017-03-08] MEDS: FINASTERIDE 5 MG TABLET PO SCH (09:10)
[2017-03-08] MEDS: POTASSIUM CHLORIDE 20 MEQ TAB.ER.PRT PO SCH (09:10)
[2017-03-08 09:20] LABS: BLOOD UREA NITROGEN 34 mg/dL (7-18)
[2017-03-08] MEDS: INSULIN ASPART 100 UNITS/ML, PEN SQ-INSULIN SCH (10:41)
== END 2017-03-08 13:44 | disposition home or self-care (01) | DRG 291 ==
LOC: ED 03:05 → EDIP 03:34 → 5SO 04:08 → 3NE 03-06 18:08
PROVIDERS: ADMIT Internal Medicine; ATTEND Internal Medicine
DX: I11.0 Hypertensive heart disease with heart failure (principal); J96.21 Acute and chronic respiratory failure with hypoxia; N17.0 Acute kidney failure with tubular necrosis; E44.0 Moderate protein-calorie malnutrition; E87.2 Acidosis; J44.1 Chronic obstructive pulmonary disease with (acute) exacerbation; I50.33 Acute on chronic diastolic (congestive) heart failure; D64.9 Anemia, unspecified; E11.42 Type 2 diabetes mellitus with diabetic polyneuropathy; E11.43 Type 2 diabetes mellitus with diabetic autonomic (poly)neuropathy; E11.65 Type 2 diabetes mellitus with hyperglycemia; E78.5 Hyperlipidemia, unspecified; E83.42 Hypomagnesemia; F17.210 Nicotine dependence, cigarettes, uncomplicated; G47.33 Obstructive sleep apnea (adult) (pediatric); I73.9 Peripheral vascular disease, unspecified; F32.9 Major depressive disorder, single episode, unspecified; K31.84 Gastroparesis; G89.29 Other chronic pain; E89.0 Postprocedural hypothyroidism; N40.0 Benign prostatic hyperplasia without lower urinary tract symptoms; Z86.73 Personal history of transient ischemic attack (TIA), and cerebral infarction without residual deficits; Z99.81 Dependence on supplemental oxygen; Z90.49 Acquired absence of other specified parts of digestive tract; Z79.82 Long term (current) use of aspirin; Z79.01 Long term (current) use of anticoagulants; Z79.4 Long term (current) use of insulin; Z91.013 Allergy to seafood; Z68.26 Body mass index [BMI] 26.0-26.9, adult
CPT/HCPCS: 36415; 71010; 80048; 80053; 80061; 82040; 82947; 82962; 83605; 83735; 83880; 84145; 84439; 84443; 84484; 85025; 87040; 93005; 94640; 96374; 96375; J1644; J1815; J1940; J2405; J7620; J1120; J2920; J3475; J7512

== ENCOUNTER 2017-09-15 08:51 | Inpatient (IN) | payer MEDICARE, BC ==
[~2017-09-15] VITALS: Ht 188 cm; Wt 90.5 kg
[~2017-09-15 08:51] MED LIST changes: +LEVO125T PO; -OXYC-229 PO; +OXYC-307 PO; +PRED20TA PO
[2017-09-15] MEDS ORDERED: SODIUM CHLORIDE FLUSH 10ML SYR IVF ONE (09:00)
[2017-09-15] MEDS ORDERED: SODIUM CHLORIDE 0.9% 1,000ML IVBOLUS ONE ×2 (09:00→17:00)
[2017-09-15 09:27] LABS: PH, VENOUS 7.268 pH (7.320-7.420)
[2017-09-15 09:28] LABS: FIO2 ROOM AIR %
[2017-09-15] MEDS ORDERED: PLEASE ENTER HEIGHT AND WEIGHT MC SCH (09:30)
[2017-09-15] MEDS ORDERED: ONDANSETRON 2MG/ML, 2ML ONE (09:40)
[2017-09-15 09:41] LABS: HEMATOCRIT 39.9 % (39.2-51.8); HEMOGLOBIN 13.4 g/dL (13.7-18.0); WHITE BLOOD COUNT 11.8 x10^3/uL (3.4-10)
[2017-09-15] MEDS ORDERED: FAMOTIDINE 20 MG/2 ML ONE (09:41)
[2017-09-15 09:54] LABS: ASPARTATE AMINO TRANSFERASE 113 U/L (15-37); BLOOD UREA NITROGEN 49 mg/dL (7-18)
[2017-09-15] MEDS ORDERED: FAMOTIDINE 20 MG/2 ML IVP ONE (10:00)
[2017-09-15] MEDS ORDERED: ONDANSETRON 2MG/ML, 2ML IVPush ONE (10:00)
[2017-09-15] MEDS ORDERED: ATOR-2 PO (10:01)
[2017-09-15] MEDS ORDERED: FENO134C PO (10:03)
[2017-09-15] MEDS ORDERED: ERYT250T14 MT (10:07)
[2017-09-15] MEDS ORDERED: FINA5TAB4 PO (10:10)
[2017-09-15] MEDS ORDERED: CLON0.1T PO (10:11)
[2017-09-15] MEDS ORDERED: REGULAR INSULIN 62.5 UNITS in SODIUM CHLORIDE 0.9% 249.375 ML IV PRN (10:14)
[2017-09-15] MEDS ORDERED: FUROSEMIDE 40 MG/4 ML ONE (10:24)
[2017-09-15] MEDS ORDERED: ALBUTEROL/IPRATROPIUM 2.5MG/0.5MG, 3 ML ONE ×2 (10:30→11:27)
[2017-09-15] MEDS ORDERED: FUROSEMIDE 40 MG/4 ML IVPush ONE (10:30)
[2017-09-15] MEDS ORDERED: ALBUTEROL/IPRATROPIUM 2.5MG/0.5MG, 3 ML NPPB ONE (10:30)
[2017-09-15] MEDS ORDERED: VECURONIUM 10 MG IVPush ONE (11:30)
[2017-09-15] MEDS ORDERED: ETOMIDATE 40 MG/20 ML IVPush ONE (11:30)
[2017-09-15] MEDS ORDERED: INSULIN ASPART 100 UNITS/ML, PEN SQ-INSULIN SCH (11:30)
[2017-09-15] MEDS ORDERED: POLYETHYLENE GLYCOL 17 GM PACKET PO PRN (11:30)
[2017-09-15] MEDS ORDERED: ONDANSETRON 2MG/ML, 2ML IVPush PRN (11:30)
[2017-09-15] MEDS: PROPOFOL 100 ML IV PRN ×4 (11:30→21:40)
[2017-09-15 11:45] LABS: IS PT STATUS REG ER OR PRE ER? YES
[2017-09-15] MEDS ORDERED: INSULIN REGULAR 100 UNITS/ML, 3ML VIAL ONE (11:52)
[2017-09-15 12:04] LABS: PATH.CAST-FLAG NOT PRESENT; SPERM-FLAG NOT PRESENT; SRC-FLAG NOT PRESENT; XTAL-FLAG NOT PRESENT; YLC-FLAG NOT PRESENT
[2017-09-15 12:08] LABS: ABG COLLECTION SITE RIGHT RADIAL; COLLATERAL CIRCULATION TESTING NORMAL
[2017-09-15] MEDS ORDERED: HEPARIN 25,000 UNITS/500ML PMX 500 ML IV PRN (12:30)
[2017-09-15 13:09] LABS: IS PT STATUS REG ER OR PRE ER? NO
[2017-09-15] MEDS ORDERED: HEPARIN MC SCH (13:30)
[2017-09-15] MEDS: INSULIN DETEMIR 100 UNITS/ML, PEN SQ-INSULIN SCH (13:35)
[2017-09-15] MEDS ORDERED: HEPARIN 5,000 UNITS/ML, 1ML IV ONE (14:30)
[2017-09-15] MEDS: HEPARIN 25,000 UNITS/500ML PMX 500 ML IV PRN (14:45)
[2017-09-15 15:15] LABS: BLOOD UREA NITROGEN 53 mg/dL (7-18)
[2017-09-15 15:45] VITALS: BP 149/94
[2017-09-15] MEDS ORDERED: FENTANYL PF 100 MCG/2ML ONE (16:36)
[2017-09-15] MEDS: FENTANYL PF 100 MCG/2ML IVPush PRN ×2 (16:45→19:25)
[2017-09-15] MEDS ORDERED: LIDOCAINE-MPF 1%, 2ML ENDO PRN (17:00)
[2017-09-15] MEDS ORDERED: FAMOTIDINE 20 MG/2 ML IV SCH (17:00)
[2017-09-15] MEDS ORDERED: BISACODYL 10 MG SUPP PR PRN (17:00)
[2017-09-15] MEDS: ALBUTEROL/IPRATROPIUM 2.5MG/0.5MG, 3 ML INLINE SCH ×2 (17:00→21:00)
[2017-09-15] MEDS ORDERED: SENNOSIDES 8.8 MG/5 ML ORAL SOL NG PRN (17:00)
[2017-09-15] MEDS ORDERED: PHARMACY MAY ADJ FOR RENAL FX MC SCH (17:00)
[2017-09-15] MEDS ORDERED: LACTULOSE 20 GM/30 ML UDC NG PRN (17:00)
[2017-09-15] MEDS ORDERED: SENNA/DOCUSATE TABLET NG PRN (17:00)
[2017-09-15] MEDS ORDERED: PHARMACY MAY ADJ FOR RENAL FX MC PRN (17:30)
[2017-09-15 17:33] LABS: ABG COLLECTION SITE LEFT RADIAL; COLLATERAL CIRCULATION TESTING NORMAL
[2017-09-15 17:43] LABS: IS PT STATUS REG ER OR PRE ER? NO
[2017-09-15] MEDS: PIPERACILLIN/TAZO/PMX 3.375GM 50 ML IV SCH (19:18)
[2017-09-15] MEDS: INSULIN ASPART 100 UNITS/ML, PEN SQ-INSULIN SCH ×2 (19:25→22:45)
[2017-09-15 19:44] LABS: DAU SCREEN DISCLAIMER
[2017-09-15] MEDS: SODIUM CHLORIDE 0.9% 1,000 ML IV SCH (20:05)
[2017-09-15] MEDS: ATORVASTATIN 80 MG TABLET PO SCH (20:54)
[2017-09-15] MEDS: FAMOTIDINE 20 MG/2 ML IVPush SCH (20:54)
[2017-09-15] MEDS: HEPARIN 5,000 UNITS/ML, 1ML IV PRN (22:07)
[2017-09-16] MEDS: ALBUTEROL/IPRATROPIUM 2.5MG/0.5MG, 3 ML INLINE SCH ×6 (02:00→22:35)
[2017-09-16] MEDS: INSULIN DETEMIR 100 UNITS/ML, PEN SQ-INSULIN SCH ×3 (02:05→23:08)
[2017-09-16] MEDS: PIPERACILLIN/TAZO/PMX 3.375GM 50 ML IV SCH ×4 (02:05→18:34)
[2017-09-16] MEDS: INSULIN ASPART 100 UNITS/ML, PEN SQ-INSULIN SCH ×6 (03:11→23:06)
[2017-09-16] MEDS: FENTANYL PF 100 MCG/2ML IVPush PRN (03:32)
[2017-09-16] MEDS ORDERED: ADENOSINE 6 MG/2 ML ONE (03:41)
[2017-09-16] MEDS ORDERED: ADENOSINE 6 MG/2 ML IVPush ONE (04:00)
[2017-09-16] MEDS: PROPOFOL 100 ML IV PRN ×6 (04:27→21:42)
[2017-09-16] MEDS: SODIUM CHLORIDE 0.9% 1,000 ML IV SCH ×2 (04:28→16:17)
[2017-09-16 04:30] VITALS: BP 137/93
[2017-09-16] MEDS ORDERED: DILTIAZEM 125 MG in SODIUM CHLORIDE 0.9% 100 ML IV PRN (04:30)
[2017-09-16 04:34] LABS: ABG COLLECTION SITE LEFT RADIAL; COLLATERAL CIRCULATION TESTING NORMAL
[2017-09-16 04:39] LABS: HEMATOCRIT 35.9 % (39.2-51.8); WHITE BLOOD COUNT 9.1 x10^3/uL (3.4-10)
[2017-09-16 04:52] LABS: ASPARTATE AMINO TRANSFERASE 84 U/L (15-37); BLOOD UREA NITROGEN 37 mg/dL (7-18)
[2017-09-16] MEDS: HEPARIN 5,000 UNITS/ML, 1ML IV PRN ×2 (05:43→11:35)
[2017-09-16] MEDS ORDERED: ASPIRIN 81 MG TABLET EC PO SCH (06:00)
[2017-09-16] MEDS ORDERED: SENNA/DOCUSATE TABLET PO SCH (09:00)
[2017-09-16] MEDS: FAMOTIDINE 20 MG/2 ML IVPush SCH ×2 (10:08→21:31)
[2017-09-16 11:00] LABS: IS PT STATUS REG ER OR PRE ER? NO
[2017-09-16] MEDS: HEPARIN 25,000 UNITS/500ML PMX 500 ML IV PRN (11:24)
[2017-09-16] MEDS: POTASSIUM CHLORIDE 10% 40 MEQ/30 ML UDC PO SCH ×2 (11:58→21:31)
[2017-09-16] MEDS: CYANOCOBALAMIN 1,000 MCG TABLET PO SCH (13:06)
[2017-09-16] MEDS: FOLIC ACID 1 MG TABLET PO SCH (13:06)
[2017-09-16] MEDS: THIAMINE 100 MG in SODIUM CHLORIDE 0.9% 50 ML IV SCH (13:06)
[2017-09-16] MEDS: ATORVASTATIN 80 MG TABLET PO SCH (21:31)
[2017-09-17] MEDS: PROPOFOL 100 ML IV PRN ×4 (00:57→22:59)
[2017-09-17] MEDS: PIPERACILLIN/TAZO/PMX 3.375GM 50 ML IV SCH ×4 (00:57→20:04)
[2017-09-17] MEDS: HEPARIN 25,000 UNITS/500ML PMX 500 ML IV PRN ×2 (01:16→15:00)
[2017-09-17] MEDS: HEPARIN 5,000 UNITS/ML, 1ML IV PRN ×2 (01:18→14:58)
[2017-09-17] MEDS: SODIUM CHLORIDE 0.9% 1,000 ML IV SCH (02:23)
[2017-09-17] MEDS: ALBUTEROL/IPRATROPIUM 2.5MG/0.5MG, 3 ML INLINE SCH ×6 (02:30→22:42)
[2017-09-17] MEDS: INSULIN ASPART 100 UNITS/ML, PEN SQ-INSULIN SCH ×5 (03:07→23:13)
[2017-09-17 04:00] VITALS: BP 142/80
[2017-09-17 04:41] LABS: ABG COLLECTION SITE LEFT BRACHIAL
[2017-09-17 04:46] LABS: HEMATOCRIT 34.6 % (39.2-51.8); HEMOGLOBIN 11.5 g/dL (13.7-18.0); WHITE BLOOD COUNT 8.6 x10^3/uL (3.4-10)
[2017-09-17 04:49] LABS: BLOOD UREA NITROGEN 25 mg/dL (7-18)
[2017-09-17 05:00] LABS: IS PT STATUS REG ER OR PRE ER? YES
[2017-09-17] MEDS ORDERED: SODIUM CHLORIDE 0.45% 1,000 ML IV SCH (07:00)
[2017-09-17] MEDS ORDERED: POTASSIUM PHOSPHATE 44 MEQ in SODIUM CHLORIDE 0.9% 500 ML IV ONE (07:00)
[2017-09-17] MEDS ORDERED: SENNOSIDES 8.8 MG/5 ML ORAL SOL PO SCH (09:00)
[2017-09-17] MEDS: DOCUSATE 50 MG/5 ML, 10ML UDC PO SCH (09:00)
[2017-09-17] MEDS: SENNOSIDES 8.8 MG/5 ML ORAL SOL PO SCH (09:00)
[2017-09-17] MEDS: FOLIC ACID 1 MG TABLET PO SCH (09:08)
[2017-09-17] MEDS: CYANOCOBALAMIN 1,000 MCG TABLET PO SCH (09:08)
[2017-09-17] MEDS: ASPIRIN 81 MG TABLET CHEW PO SCH (09:09)
[2017-09-17] MEDS: FAMOTIDINE 20 MG/2 ML IVPush SCH ×2 (09:09→21:08)
[2017-09-17] MEDS: THIAMINE 100 MG in SODIUM CHLORIDE 0.9% 50 ML IV SCH (11:52)
[2017-09-17] MEDS: INSULIN DETEMIR 100 UNITS/ML, PEN SQ-INSULIN SCH ×2 (12:34→23:14)
[2017-09-17] MEDS: morphine SULFATE 10 MG/ML, 1ML IVPush PRN (13:24)
[2017-09-17] MEDS: LABETALOL 5MG/ML, 20ML IVPush PRN ×2 (20:08→23:00)
[2017-09-17] MEDS: ACETAMINOPHEN 325 MG TABLET PO PRN (21:07)
[2017-09-17] MEDS: ATORVASTATIN 80 MG TABLET PO SCH (21:08)
[2017-09-18] MEDS: PIPERACILLIN/TAZO/PMX 3.375GM 50 ML IV SCH ×4 (02:28→20:17)
[2017-09-18] MEDS: ALBUTEROL/IPRATROPIUM 2.5MG/0.5MG, 3 ML INLINE SCH ×6 (02:43→22:00)
[2017-09-18] MEDS: HEPARIN 25,000 UNITS/500ML PMX 500 ML IV PRN ×2 (03:52→16:35)
[2017-09-18 04:00] VITALS: BP 149/87
[2017-09-18] MEDS: SODIUM CHLORIDE 0.45% 1,000 ML IV SCH ×2 (04:02→21:23)
[2017-09-18 04:51] LABS: ABG COLLECTION SITE LEFT RADIAL; COLLATERAL CIRCULATION TESTING NORMAL
[2017-09-18 04:59] LABS: HEMATOCRIT 34.3 % (39.2-51.8); HEMOGLOBIN 11.6 g/dL (13.7-18.0); WHITE BLOOD COUNT 8.7 x10^3/uL (3.4-10)
[2017-09-18 05:05] LABS: BLOOD UREA NITROGEN 20 mg/dL (7-18)
[2017-09-18] MEDS: INSULIN ASPART 100 UNITS/ML, PEN SQ-INSULIN SCH ×4 (05:31→23:35)
[2017-09-18] MEDS ORDERED: MAGNESIUM SULFATE PMX 2GM/50ML 50 ML IV ONE (08:00)
[2017-09-18] MEDS: FENTANYL PF 100 MCG/2ML IVPush PRN ×2 (08:35→10:05)
[2017-09-18] MEDS: PROPOFOL 100 ML IV PRN ×3 (08:36→23:36)
[2017-09-18] MEDS: DOCUSATE 50 MG/5 ML, 10ML UDC PO SCH (09:00)
[2017-09-18] MEDS: SENNOSIDES 8.8 MG/5 ML ORAL SOL PO SCH (09:00)
[2017-09-18] MEDS: ASPIRIN 81 MG TABLET CHEW PO SCH (09:06)
[2017-09-18] MEDS: FAMOTIDINE 20 MG/2 ML IVPush SCH ×2 (09:06→20:51)
[2017-09-18] MEDS: CYANOCOBALAMIN 1,000 MCG TABLET PO SCH (09:07)
[2017-09-18] MEDS: FOLIC ACID 1 MG TABLET PO SCH (09:07)
[2017-09-18] MEDS: POTASSIUM CHLORIDE 10% 40 MEQ/30 ML UDC PO SCH ×2 (09:07→20:51)
[2017-09-18] MEDS ORDERED: GADOBUTROL 7.5 MMOL/7.5 ML PFS ONE (10:09)
[2017-09-18] MEDS ORDERED: OMNIPAQUE 350 MG/ML, 100ML BOTTLE ONE (10:10)
[2017-09-18] MEDS: INSULIN DETEMIR 100 UNITS/ML, PEN SQ-INSULIN SCH ×2 (10:55→23:34)
[2017-09-18] MEDS: THIAMINE 100 MG in SODIUM CHLORIDE 0.9% 50 ML IV SCH (10:57)
[2017-09-18] MEDS ORDERED: LOSARTAN 25MG TABLET PO SCH (11:00)
[2017-09-18 11:55] LABS: ASPARTATE AMINO TRANSFERASE 18 U/L (15-37); BLOOD UREA NITROGEN 17 mg/dL (7-18)
[2017-09-18 12:04] LABS: HEMOGLOBIN 12.2 g/dL (13.7-18.0); WHITE BLOOD COUNT 11.4 x10^3/uL (3.4-10)
[2017-09-18] MEDS: OXYcodone IR 5MG TABLET PO PRN ×2 (13:50→20:53)
[2017-09-18] MEDS: CARVEDILOL 6.25 MG TABLET PO SCH (17:59)
[2017-09-18] MEDS ORDERED: CARVEDILOL 12.5 MG TABLET PO SCH (18:00)
[2017-09-18] MEDS ORDERED: CARVEDILOL 3.125 MG TABLET PO SCH (18:00)
[2017-09-18] MEDS: ATORVASTATIN 80 MG TABLET PO SCH (20:51)
[2017-09-18] MEDS: ACETAMINOPHEN 325 MG TABLET PO PRN (23:50)
[2017-09-19] MEDS: ALBUTEROL/IPRATROPIUM 2.5MG/0.5MG, 3 ML INLINE SCH ×6 (02:00→22:15)
[2017-09-19] MEDS: PIPERACILLIN/TAZO/PMX 3.375GM 50 ML IV SCH ×2 (02:58→08:27)
[2017-09-19 04:00] VITALS: BP 155/86
[2017-09-19 04:21] LABS: ABG COLLECTION SITE LEFT BRACHIAL
[2017-09-19 04:35] LABS: BLOOD UREA NITROGEN 17 mg/dL (7-18)
[2017-09-19 04:42] LABS: HEMOGLOBIN 12.1 g/dL (13.7-18.0); WHITE BLOOD COUNT 10.2 x10^3/uL (3.4-10)
[2017-09-19] MEDS: INSULIN ASPART 100 UNITS/ML, PEN SQ-INSULIN SCH ×4 (05:17→23:32)
[2017-09-19] MEDS: CARVEDILOL 6.25 MG TABLET PO SCH ×2 (05:26→16:41)
[2017-09-19] MEDS: OXYcodone IR 5MG TABLET PO PRN (05:26)
[2017-09-19] MEDS: PROPOFOL 100 ML IV PRN ×2 (07:57→23:31)
[2017-09-19] MEDS ORDERED: MAGNESIUM SULFATE PMX 2GM/50ML 50 ML IV ONE (08:00)
[2017-09-19] MEDS ORDERED: LOSARTAN 25MG TABLET PO ONE (11:00)
[2017-09-19] MEDS: FAMOTIDINE 20 MG/2 ML IVPush SCH (11:24)
[2017-09-19] MEDS: ASPIRIN 81 MG TABLET CHEW PO SCH (11:24)
[2017-09-19] MEDS: FOLIC ACID 1 MG TABLET PO SCH (11:25)
[2017-09-19] MEDS: CYANOCOBALAMIN 1,000 MCG TABLET PO SCH (11:25)
[2017-09-19] MEDS: SENNOSIDES 8.8 MG/5 ML ORAL SOL PO SCH (11:25)
[2017-09-19] MEDS: RISPERIDONE 0.5 MG TABLET PO SCH ×2 (11:25→21:04)
[2017-09-19] MEDS: THIAMINE 100 MG in SODIUM CHLORIDE 0.9% 50 ML IV SCH (11:26)
[2017-09-19] MEDS: DOCUSATE 50 MG/5 ML, 10ML UDC PO SCH (11:27)
[2017-09-19] MEDS: INSULIN DETEMIR 100 UNITS/ML, PEN SQ-INSULIN SCH ×2 (12:27→23:33)
[2017-09-19] MEDS: CEFTRIAXONE PMX 1GM/50ML 50 ML IV SCH (13:13)
[2017-09-19] MEDS: POTASSIUM CHLORIDE 10% 40 MEQ/30 ML UDC PO SCH ×2 (16:40→21:20)
[2017-09-19] MEDS: ATORVASTATIN 80 MG TABLET PO SCH (21:04)
[2017-09-19] MEDS: SODIUM CHLORIDE 0.45% 1,000 ML IV SCH (23:32)
[2017-09-20] MEDS: OXYcodone IR 5MG TABLET PO PRN (01:39)
[2017-09-20] MEDS: ALBUTEROL/IPRATROPIUM 2.5MG/0.5MG, 3 ML INLINE SCH ×6 (02:00→23:10)
[2017-09-20 04:09] LABS: ABG COLLECTION SITE RIGHT RADIAL; COLLATERAL CIRCULATION TESTING NORMAL
[2017-09-20 04:11] LABS: HEMATOCRIT 32.9 % (39.2-51.8); HEMOGLOBIN 11.1 g/dL (13.7-18.0); WHITE BLOOD COUNT 10.9 x10^3/uL (3.4-10)
[2017-09-20 04:22] LABS: BLOOD UREA NITROGEN 21 mg/dL (7-18)
[2017-09-20] MEDS: INSULIN ASPART 100 UNITS/ML, PEN SQ-INSULIN SCH ×4 (05:39→23:20)
[2017-09-20] MEDS: CARVEDILOL 6.25 MG TABLET PO SCH ×2 (05:39→17:18)
[2017-09-20] MEDS: SENNOSIDES 8.8 MG/5 ML ORAL SOL PO SCH (09:00)
[2017-09-20] MEDS: DOCUSATE 50 MG/5 ML, 10ML UDC PO SCH (09:00)
[2017-09-20] MEDS: PANTOPRAZOLE 40 MG IV IVPush SCH (09:05)
[2017-09-20] MEDS: CYANOCOBALAMIN 1,000 MCG TABLET PO SCH (09:05)
[2017-09-20] MEDS: RISPERIDONE 0.5 MG TABLET PO SCH (09:05)
[2017-09-20] MEDS: FOLIC ACID 1 MG TABLET PO SCH (09:05)
[2017-09-20] MEDS: LOSARTAN 50MG TABLET PO SCH (09:06)
[2017-09-20] MEDS: ASPIRIN 81 MG TABLET CHEW PO SCH (09:06)
[2017-09-20] MEDS: morphine SULFATE 10 MG/ML, 1ML IVPush PRN (10:32)
[2017-09-20] MEDS: LORazepam 2 MG/ML, 1ML IVPush PRN (10:32)
[2017-09-20] MEDS: INSULIN DETEMIR 100 UNITS/ML, PEN SQ-INSULIN SCH ×2 (11:25→23:22)
[2017-09-20] MEDS: THIAMINE 100 MG in SODIUM CHLORIDE 0.9% 50 ML IV SCH (12:24)
[2017-09-20] MEDS: CEFTRIAXONE PMX 1GM/50ML 50 ML IV SCH (12:43)
[2017-09-20] MEDS: SODIUM CHLORIDE 0.45% 1,000 ML IV SCH (16:40)
[2017-09-20] MEDS: RISPERIDONE 1 MG TABLET PO SCH (21:19)
[2017-09-20] MEDS: ATORVASTATIN 80 MG TABLET PO SCH (21:20)
[2017-09-21] MEDS: PROPOFOL 100 ML IV PRN (00:19)
[2017-09-21] MEDS: morphine SULFATE 10 MG/ML, 1ML IVPush PRN ×2 (01:15→08:46)
[2017-09-21] MEDS: ALBUTEROL/IPRATROPIUM 2.5MG/0.5MG, 3 ML INLINE SCH ×3 (02:49→10:00)
[2017-09-21 04:00] VITALS: BP 160/82
[2017-09-21 04:18] LABS: ABG COLLECTION SITE RIGHT BRACHIAL
[2017-09-21 04:20] LABS: WHITE BLOOD COUNT 10.5 x10^3/uL (3.4-10)
[2017-09-21 04:41] LABS: ASPARTATE AMINO TRANSFERASE 55 U/L (15-37); BLOOD UREA NITROGEN 20 mg/dL (7-18)
[2017-09-21] MEDS: INSULIN ASPART 100 UNITS/ML, PEN SQ-INSULIN SCH ×4 (05:21→23:02)
[2017-09-21] MEDS: CARVEDILOL 6.25 MG TABLET PO SCH ×2 (05:57→17:30)
[2017-09-21] MEDS ORDERED: POTASSIUM CHLORIDE 40 MEQ in SODIUM CHLORIDE 0.9% 500 ML IV ONE (06:30)
[2017-09-21] MEDS: ASPIRIN 81 MG TABLET CHEW PO SCH (08:35)
[2017-09-21] MEDS: PANTOPRAZOLE 40 MG IV IVPush SCH (08:35)
[2017-09-21] MEDS: DOCUSATE 50 MG/5 ML, 10ML UDC PO SCH (08:35)
[2017-09-21] MEDS: SENNOSIDES 8.8 MG/5 ML ORAL SOL PO SCH (08:35)
[2017-09-21] MEDS: RISPERIDONE 1 MG TABLET PO SCH ×2 (08:36→20:57)
[2017-09-21] MEDS: LOSARTAN 50MG TABLET PO SCH (08:36)
[2017-09-21] MEDS: FOLIC ACID 1 MG TABLET PO SCH (08:36)
[2017-09-21] MEDS: CYANOCOBALAMIN 1,000 MCG TABLET PO SCH (08:36)
[2017-09-21] MEDS: FUROSEMIDE 20 MG/2 ML IV SCH ×2 (11:16→17:30)
[2017-09-21] MEDS: SPIRONOLACTONE 25 MG TABLET PO SCH (11:16)
[2017-09-21] MEDS: INSULIN DETEMIR 100 UNITS/ML, PEN SQ-INSULIN SCH ×2 (11:26→20:41)
[2017-09-21] MEDS: THIAMINE 100 MG in SODIUM CHLORIDE 0.9% 50 ML IV SCH (12:26)
[2017-09-21] MEDS: LABETALOL 5MG/ML, 20ML IVPush PRN ×2 (12:27→17:33)
[2017-09-21] MEDS: SODIUM CHLORIDE 0.45% 1,000 ML IV SCH (12:29)
[2017-09-21] MEDS: ALBUTEROL/IPRATROPIUM 2.5MG/0.5MG, 3 ML NPPB SCH ×3 (13:00→23:26)
[2017-09-21] MEDS: CEFTRIAXONE PMX 1GM/50ML 50 ML IV SCH (15:06)
[2017-09-21] MEDS: ATORVASTATIN 80 MG TABLET PO SCH (20:57)
[2017-09-22] MEDS: ALBUTEROL/IPRATROPIUM 2.5MG/0.5MG, 3 ML NPPB SCH ×6 (03:27→22:04)
[2017-09-22 04:00] VITALS: BP 151/94
[2017-09-22] MEDS: INSULIN ASPART 100 UNITS/ML, PEN SQ-INSULIN SCH ×4 (04:10→23:29)
[2017-09-22 04:18] LABS: HEMATOCRIT 34.7 % (39.2-51.8); HEMOGLOBIN 11.7 g/dL (13.7-18.0); WHITE BLOOD COUNT 12.9 x10^3/uL (3.4-10)
[2017-09-22 04:26] LABS: BLOOD UREA NITROGEN 16 mg/dL (7-18)
[2017-09-22 04:27] LABS: ABG COLLECTION SITE LEFT BRACHIAL
[2017-09-22] MEDS ORDERED: MAGNESIUM SULFATE PMX 2GM/50ML 50 ML IV ONE (05:30)
[2017-09-22] MEDS: CARVEDILOL 6.25 MG TABLET PO SCH ×2 (06:00→17:03)
[2017-09-22] MEDS ORDERED: POTASSIUM CHLORIDE 40 MEQ in SODIUM CHLORIDE 0.9% 100 ML IV ONE (08:00)
[2017-09-22] MEDS ORDERED: FENTANYL PF 100 MCG/2ML IVPush PRN (08:00)
[2017-09-22] MEDS: RISPERIDONE 1 MG TABLET PO SCH ×2 (08:45→21:44)
[2017-09-22] MEDS: PANTOPRAZOLE 40 MG IV IVPush SCH (08:45)
[2017-09-22] MEDS: FUROSEMIDE 20 MG/2 ML IV SCH (08:45)
[2017-09-22] MEDS: ASPIRIN 81 MG TABLET CHEW PO SCH (08:45)
[2017-09-22] MEDS: SENNOSIDES 8.8 MG/5 ML ORAL SOL PO SCH (08:46)
[2017-09-22] MEDS: DOCUSATE 50 MG/5 ML, 10ML UDC PO SCH (08:46)
[2017-09-22] MEDS: LOSARTAN 50MG TABLET PO SCH (08:46)
[2017-09-22] MEDS: CYANOCOBALAMIN 1,000 MCG TABLET PO SCH (08:47)
[2017-09-22] MEDS: FOLIC ACID 1 MG TABLET PO SCH (08:47)
[2017-09-22] MEDS: SPIRONOLACTONE 25 MG TABLET PO SCH (08:47)
[2017-09-22] MEDS ORDERED: FENTANYL PF 100 MCG/2ML ONE (09:03)
[2017-09-22] MEDS: HEPARIN 5,000 UNITS/ML, 1ML SQ SCH ×3 (09:29→23:32)
[2017-09-22] MEDS ORDERED: POTASSIUM CHLORIDE 20 MEQ TAB.ER.PRT PO ONE ×2 (10:00)
[2017-09-22] MEDS: INSULIN DETEMIR 100 UNITS/ML, PEN SQ-INSULIN SCH (11:30)
[2017-09-22] MEDS: OXYcodone IR 5MG TABLET PO PRN (11:42)
[2017-09-22 12:23] VITALS: BP 136/77
[2017-09-22] MEDS: CEFTRIAXONE PMX 1GM/50ML 50 ML IV SCH (13:18)
[2017-09-22] MEDS: THIAMINE 100 MG in SODIUM CHLORIDE 0.9% 50 ML IV SCH (15:12)
[2017-09-22 20:18] VITALS: BP 118/77
[2017-09-22] MEDS: ATORVASTATIN 80 MG TABLET PO SCH (21:44)
[2017-09-23] VITALS (8 sets, daily range): BP systolic 100–173; BP diastolic 69–94
[2017-09-23] MEDS: ALBUTEROL/IPRATROPIUM 2.5MG/0.5MG, 3 ML NPPB SCH ×6 (00:06→22:20)
[2017-09-23] MEDS: CARVEDILOL 6.25 MG TABLET PO SCH (05:05)
[2017-09-23] MEDS: INSULIN ASPART 100 UNITS/ML, PEN SQ-INSULIN SCH ×4 (05:05→23:02)
[2017-09-23 05:53] LABS: HEMATOCRIT 34.2 % (39.2-51.8); HEMOGLOBIN 11.4 g/dL (13.7-18.0); WHITE BLOOD COUNT 9.9 x10^3/uL (3.4-10)
[2017-09-23 06:19] LABS: ASPARTATE AMINO TRANSFERASE 25 U/L (15-37); BLOOD UREA NITROGEN 17 mg/dL (7-18)
[2017-09-23] MEDS ORDERED: RISPERIDONE 0.5 MG TABLET ONE (08:21)
[2017-09-23] MEDS: PANTOPRAZOLE 40 MG IV IVPush SCH (08:32)
[2017-09-23] MEDS: ASPIRIN 81 MG TABLET CHEW PO SCH (08:37)
[2017-09-23] MEDS: SPIRONOLACTONE 25 MG TABLET PO SCH (08:37)
[2017-09-23] MEDS: LOSARTAN 50MG TABLET PO SCH (08:37)
[2017-09-23] MEDS: HEPARIN 5,000 UNITS/ML, 1ML SQ SCH ×2 (08:38→17:34)
[2017-09-23] MEDS: RISPERIDONE 1 MG TABLET PO SCH ×2 (08:38→21:09)
[2017-09-23] MEDS: FUROSEMIDE 20 MG TABLET PO SCH (08:39)
[2017-09-23] MEDS: CYANOCOBALAMIN 1,000 MCG TABLET PO SCH (08:39)
[2017-09-23] MEDS: DOCUSATE 50 MG/5 ML, 10ML UDC PO SCH (08:40)
[2017-09-23] MEDS: SENNOSIDES 8.8 MG/5 ML ORAL SOL PO SCH (08:40)
[2017-09-23] MEDS: FOLIC ACID 1 MG TABLET PO SCH (08:45)
[2017-09-23] MEDS ORDERED: MAGNESIUM SULFATE PMX 2GM/50ML 50 ML IV ONE (12:00)
[2017-09-23] MEDS ORDERED: POTASSIUM CHLORIDE 20 MEQ PACKET PO ONE (12:00)
[2017-09-23] MEDS ORDERED: MIDAZOLAM 1 MG/ML, 5ML ONE (12:29)
[2017-09-23] MEDS ORDERED: TICAGRELOR 90 MG TABLET ONE (12:29)
[2017-09-23] MEDS ORDERED: VERAPAMIL 2.5 MG/ML, 2ML ONE (12:29)
[2017-09-23] MEDS ORDERED: FENTANYL PF 100 MCG/2ML ONE (12:29)
[2017-09-23] MEDS ORDERED: HEPARIN 1,000 UNITS/ML, 10ML ONE (12:30)
[2017-09-23] MEDS ORDERED: LIDOCAINE 2%, 20ML ONE (12:30)
[2017-09-23] MEDS ORDERED: BIVALIRUDIN 250 MG ONE (12:30)
[2017-09-23] MEDS ORDERED: NITROGLYCERIN 5 MG/ML, 10ML ONE (12:30)
[2017-09-23] MEDS ORDERED: DIPHENHYDRAMINE 50 MG/ML, 1ML ONE (12:44)
[2017-09-23] MEDS: CEFTRIAXONE PMX 1GM/50ML 50 ML IV SCH (14:04)
[2017-09-23] MEDS: THIAMINE 100 MG in SODIUM CHLORIDE 0.9% 100 ML IV SCH (15:53)
[2017-09-23] MEDS: SODIUM CHLORIDE 0.9% 1,000 ML IV SCH ×2 (15:54→21:37)
[2017-09-23] MEDS: CARVEDILOL 12.5 MG TABLET PO SCH (17:37)
[2017-09-23] MEDS: OXYcodone IR 5MG TABLET PO PRN (17:37)
[2017-09-23] MEDS: ATORVASTATIN 80 MG TABLET PO SCH (21:09)
[2017-09-23] MEDS: LORazepam 2 MG/ML, 1ML IVPush PRN (22:52)
[2017-09-24] MEDS: HEPARIN 5,000 UNITS/ML, 1ML SQ SCH ×3 (00:01→14:34)
[2017-09-24 02:03] VITALS: BP 124/78
[2017-09-24 05:12] LABS: HEMOGLOBIN 11.1 g/dL (13.7-18.0); WHITE BLOOD COUNT 8.9 x10^3/uL (3.4-10)
[2017-09-24 05:22] LABS: BLOOD UREA NITROGEN 16 mg/dL (7-18)
[2017-09-24] MEDS: SODIUM CHLORIDE 0.9% 1,000 ML IV SCH ×3 (05:37→21:34)
[2017-09-24] MEDS: CARVEDILOL 12.5 MG TABLET PO SCH ×2 (05:43→17:13)
[2017-09-24] MEDS: INSULIN ASPART 100 UNITS/ML, PEN SQ-INSULIN SCH ×4 (05:43→21:33)
[2017-09-24 07:26] VITALS: BP 173/92
[2017-09-24] MEDS: ALBUTEROL/IPRATROPIUM 2.5MG/0.5MG, 3 ML NPPB SCH (07:43)
[2017-09-24] MEDS: LOSARTAN 50MG TABLET PO SCH (07:58)
[2017-09-24] MEDS: CYANOCOBALAMIN 1,000 MCG TABLET PO SCH (07:59)
[2017-09-24] MEDS: FUROSEMIDE 20 MG TABLET PO SCH (07:59)
[2017-09-24] MEDS: ASPIRIN 81 MG TABLET CHEW PO SCH (07:59)
[2017-09-24] MEDS: SPIRONOLACTONE 25 MG TABLET PO SCH (07:59)
[2017-09-24] MEDS: RISPERIDONE 1 MG TABLET PO SCH ×2 (08:00→20:40)
[2017-09-24] MEDS: PANTOPRAZOLE 40 MG IV IVPush SCH (08:00)
[2017-09-24] MEDS: SENNOSIDES 8.8 MG/5 ML ORAL SOL PO SCH (08:01)
[2017-09-24] MEDS: DOCUSATE 50 MG/5 ML, 10ML UDC PO SCH (08:01)
[2017-09-24] MEDS: FOLIC ACID 1 MG TABLET PO SCH (08:02)
[2017-09-24] MEDS ORDERED: ALBUTEROL/IPRATROPIUM 2.5MG/0.5MG, 3 ML NPPB SCH (11:00)
[2017-09-24] MEDS ORDERED: POTASSIUM CHLORIDE 20 MEQ PACKET PO ONE (12:30)
[2017-09-24] MEDS: CEFTRIAXONE PMX 1GM/50ML 50 ML IV SCH (12:50)
[2017-09-24 13:33] VITALS: BP 155/83
[2017-09-24] MEDS: THIAMINE 100 MG in SODIUM CHLORIDE 0.9% 100 ML IV SCH (14:35)
[2017-09-24 18:17] VITALS: BP 177/96
[2017-09-24] MEDS: ATORVASTATIN 80 MG TABLET PO SCH (20:40)
[2017-09-24] MEDS ORDERED: hydrALAzine 20 MG/ML, 1ML IV ONE (21:30)
[2017-09-24 22:17] VITALS: BP 159/74
[2017-09-25] MEDS: HEPARIN 5,000 UNITS/ML, 1ML SQ SCH ×3 (00:24→17:07)
[2017-09-25 00:28] VITALS: BP 168/93
[2017-09-25] MEDS: ALBUTEROL/IPRATROPIUM 2.5MG/0.5MG, 3 ML NPPB PRN (01:05)
[2017-09-25] MEDS: CARVEDILOL 12.5 MG TABLET PO SCH (03:48)
[2017-09-25 04:46] VITALS: BP 155/88
[2017-09-25 05:08] LABS: HEMATOCRIT 35.6 % (39.2-51.8); WHITE BLOOD COUNT 8.3 x10^3/uL (3.4-10)
[2017-09-25 05:19] LABS: BLOOD UREA NITROGEN 12 mg/dL (7-18)
[2017-09-25] MEDS: SODIUM CHLORIDE 0.9% 1,000 ML IV SCH (05:37)
[2017-09-25 05:48] LABS: ASPARTATE AMINO TRANSFERASE 23 U/L (15-37)
[2017-09-25] MEDS ORDERED: INSULIN ASPART 100 UNITS/ML, PEN SQ-INSULIN SCH (07:00)
[2017-09-25 07:55] VITALS: BP 156/89
[2017-09-25] MEDS ORDERED: POTASSIUM CHLORIDE 20 MEQ TAB.ER.PRT PO ONE (08:00)
[2017-09-25] MEDS ORDERED: MAGNESIUM SULFATE PMX 4GM/100M 100 ML IV ONE (08:00)
[2017-09-25] MEDS: PANTOPRAZOLE 40 MG IV IVPush SCH (08:26)
[2017-09-25] MEDS: FOLIC ACID 1 MG TABLET PO SCH (08:26)
[2017-09-25] MEDS: SPIRONOLACTONE 25 MG TABLET PO SCH (08:26)
[2017-09-25] MEDS: RISPERIDONE 1 MG TABLET PO SCH (08:26)
[2017-09-25] MEDS: CYANOCOBALAMIN 1,000 MCG TABLET PO SCH (08:26)
[2017-09-25] MEDS: ASPIRIN 81 MG TABLET CHEW PO SCH (08:26)
[2017-09-25] MEDS: LOSARTAN 50MG TABLET PO SCH ×2 (08:27→21:17)
[2017-09-25] MEDS: SENNOSIDES 8.8 MG/5 ML ORAL SOL PO SCH (08:27)
[2017-09-25] MEDS: DOCUSATE 50 MG/5 ML, 10ML UDC PO SCH (08:27)
[2017-09-25] MEDS: FUROSEMIDE 20 MG TABLET PO SCH (08:37)
[2017-09-25] MEDS: INSULIN ASPART 100 UNITS/ML, PEN SQ-INSULIN SCH ×4 (08:37→21:23)
[2017-09-25] MEDS: CEFTRIAXONE PMX 1GM/50ML 50 ML IV SCH (13:57)
[2017-09-25] MEDS: INSULIN DETEMIR 100 UNITS/ML, PEN SQ-INSULIN SCH (13:58)
[2017-09-25 15:25] VITALS: BP 138/82
[2017-09-25] MEDS: CARVEDILOL 6.25 MG TABLET PO SCH (17:07)
[2017-09-25] MEDS ORDERED: POLYETHYLENE GLYCOL 17 GM PACKET PO PRN (19:00)
[2017-09-25] MEDS ORDERED: LACTULOSE 20 GM/30 ML UDC NG PRN (19:00)
[2017-09-25] MEDS ORDERED: BISACODYL 10 MG SUPP PR PRN (19:00)
[2017-09-25] MEDS ORDERED: PHARMACY MAY ADJ FOR RENAL FX MC SCH (19:00)
[2017-09-25 19:14] VITALS: BP 147/88
[2017-09-25] MEDS: ATORVASTATIN 80 MG TABLET PO SCH (21:17)
[2017-09-26] MEDS: HEPARIN 5,000 UNITS/ML, 1ML SQ SCH ×4 (00:13→23:54)
[2017-09-26 01:38] VITALS: BP 118/70
[2017-09-26] MEDS: INSULIN DETEMIR 100 UNITS/ML, PEN SQ-INSULIN SCH ×2 (02:17→17:02)
[2017-09-26 05:33] LABS: BLOOD UREA NITROGEN 16 mg/dL (7-18); HEMATOCRIT 36.5 % (39.2-51.8); HEMOGLOBIN 12.3 g/dL (13.7-18.0); WHITE BLOOD COUNT 8.1 x10^3/uL (3.4-10)
[2017-09-26] MEDS: CARVEDILOL 6.25 MG TABLET PO SCH (06:24)
[2017-09-26] MEDS ORDERED: FUROSEMIDE 40 MG TABLET ONE (07:49)
[2017-09-26] MEDS ORDERED: POTASSIUM CHLORIDE 20 MEQ TAB.ER.PRT PO ONE (08:00)
[2017-09-26] MEDS: POTASSIUM CHLORIDE 20 MEQ TAB.ER.PRT PO SCH (08:00)
[2017-09-26] MEDS: SPIRONOLACTONE 25 MG TABLET PO SCH (08:01)
[2017-09-26] MEDS: FOLIC ACID 1 MG TABLET PO SCH (08:01)
[2017-09-26] MEDS: LOSARTAN 50MG TABLET PO SCH ×2 (08:01→21:00)
[2017-09-26] MEDS: INSULIN ASPART 100 UNITS/ML, PEN SQ-INSULIN SCH ×4 (08:02→21:26)
[2017-09-26] MEDS: FUROSEMIDE 20 MG TABLET PO SCH (08:02)
[2017-09-26] MEDS: ASPIRIN 81 MG TABLET CHEW PO SCH (08:03)
[2017-09-26] MEDS: DOCUSATE 50 MG/5 ML, 10ML UDC PO SCH (08:03)
[2017-09-26] MEDS: SENNOSIDES 8.8 MG/5 ML ORAL SOL PO SCH (08:03)
[2017-09-26 08:07] VITALS: BP 148/88
[2017-09-26 13:32] VITALS: BP 134/87
[2017-09-26] MEDS: CEFTRIAXONE PMX 1GM/50ML 50 ML IV SCH (13:44)
[2017-09-26] MEDS: ALBUTEROL/IPRATROPIUM 2.5MG/0.5MG, 3 ML NPPB PRN (16:09)
[2017-09-26 16:58] VITALS: BP 110/62
[2017-09-26] MEDS: DIPHENOXYLATE/ATROPINE TABLET PO PRN (17:01)
[2017-09-26 17:59] VITALS: BP 124/67
[2017-09-26] MEDS ORDERED: CARVEDILOL 3.125 MG TABLET PO SCH (18:00)
[2017-09-26 20:03] VITALS: BP 154/78
[2017-09-26] MEDS: CHOLESTYRAMINE LIGHT 4GM PACKET PO SCH (21:00)
[2017-09-26] MEDS: ATORVASTATIN 80 MG TABLET PO SCH (21:21)
[2017-09-27 02:00] VITALS: BP 102/68
[2017-09-27] MEDS: INSULIN DETEMIR 100 UNITS/ML, PEN SQ-INSULIN SCH ×2 (04:05→16:22)
[2017-09-27 05:48] LABS: BLOOD UREA NITROGEN 15 mg/dL (7-18)
[2017-09-27 06:59] VITALS: BP 150/88
[2017-09-27] MEDS: DOCUSATE 50 MG/5 ML, 10ML UDC PO SCH (07:30)
[2017-09-27] MEDS: SENNOSIDES 8.8 MG/5 ML ORAL SOL PO SCH (07:31)
[2017-09-27] MEDS: POTASSIUM CHLORIDE 20 MEQ TAB.ER.PRT PO SCH (07:37)
[2017-09-27] MEDS: SPIRONOLACTONE 25 MG TABLET PO SCH (07:37)
[2017-09-27] MEDS: FUROSEMIDE 20 MG TABLET PO SCH (07:37)
[2017-09-27] MEDS: LOSARTAN 50MG TABLET PO SCH ×2 (07:37→21:12)
[2017-09-27] MEDS: ASPIRIN 81 MG TABLET CHEW PO SCH (07:37)
[2017-09-27] MEDS: FOLIC ACID 1 MG TABLET PO SCH (07:38)
[2017-09-27] MEDS: HEPARIN 5,000 UNITS/ML, 1ML SQ SCH ×3 (07:38→23:26)
[2017-09-27] MEDS: CHOLESTYRAMINE LIGHT 4GM PACKET PO SCH ×3 (07:38→21:35)
[2017-09-27] MEDS: INSULIN ASPART 100 UNITS/ML, PEN SQ-INSULIN SCH ×4 (07:42→21:18)
[2017-09-27] MEDS ORDERED: POTASSIUM CHLORIDE 20 MEQ TAB.ER.PRT PO ONE ×2 (08:00→11:30)
[2017-09-27] MEDS ORDERED: CEFAZOLIN PMX 1GM/50ML 50 ML IVPB ONE (11:30)
[2017-09-27] MEDS: CEFTRIAXONE PMX 1GM/50ML 50 ML IV SCH (12:45)
[2017-09-27 15:04] VITALS: BP 127/75
[2017-09-27] MEDS: SODIUM CHLORIDE 0.9% 1,000 ML IV SCH (19:01)
[2017-09-27 19:24] VITALS: BP 128/83
[2017-09-27] MEDS: ATORVASTATIN 80 MG TABLET PO SCH (21:11)
[2017-09-28 01:36] VITALS: BP 118/76
[2017-09-28] MEDS: ONDANSETRON 2MG/ML, 2ML IVPush PRN ×4 (01:46→20:27)
[2017-09-28] MEDS: DIPHENOXYLATE/ATROPINE TABLET PO PRN ×2 (02:59→22:22)
[2017-09-28] MEDS: SODIUM CHLORIDE 0.9% 1,000 ML IV SCH ×4 (03:01→19:30)
[2017-09-28] MEDS ORDERED: METOCLOPRAMIDE 5 MG/ML, 2ML IVPush ONE (05:00)
[2017-09-28 05:29] LABS: HEMATOCRIT 37.2 % (39.2-51.8); HEMOGLOBIN 12.7 g/dL (13.7-18.0); WHITE BLOOD COUNT 9.2 x10^3/uL (3.4-10)
[2017-09-28 05:37] LABS: BLOOD UREA NITROGEN 14 mg/dL (7-18)
[2017-09-28] MEDS: INSULIN ASPART 100 UNITS/ML, PEN SQ-INSULIN SCH ×4 (07:00→20:50)
[2017-09-28] MEDS: DOCUSATE 50 MG/5 ML, 10ML UDC PO SCH (07:24)
[2017-09-28] MEDS: SENNOSIDES 8.8 MG/5 ML ORAL SOL PO SCH (07:25)
[2017-09-28] MEDS: ASPIRIN 81 MG TABLET CHEW PO SCH (07:37)
[2017-09-28] MEDS: FOLIC ACID 1 MG TABLET PO SCH (07:37)
[2017-09-28] MEDS: INSULIN DETEMIR 100 UNITS/ML, PEN SQ-INSULIN SCH ×2 (07:37→20:50)
[2017-09-28] MEDS: FUROSEMIDE 20 MG TABLET PO SCH (07:37)
[2017-09-28] MEDS: LOSARTAN 50MG TABLET PO SCH ×2 (07:37→20:49)
[2017-09-28] MEDS: SPIRONOLACTONE 25 MG TABLET PO SCH (07:37)
[2017-09-28] MEDS: POTASSIUM CHLORIDE 20 MEQ TAB.ER.PRT PO SCH (07:37)
[2017-09-28] MEDS: CHOLESTYRAMINE LIGHT 4GM PACKET PO SCH ×2 (07:38→20:55)
[2017-09-28 08:12] VITALS: BP 139/88
[2017-09-28] MEDS ORDERED: CEFAZOLIN 1,000 MG ONE (11:30)
[2017-09-28] MEDS ORDERED: LIDOCAINE 2%, 20ML ONE (11:30)
[2017-09-28] MEDS ORDERED: CEFAZOLIN PMX 1GM/50ML 50 ML ONE (11:30)
[2017-09-28] MEDS ORDERED: FENTANYL PF 100 MCG/2ML ONE (11:30)
[2017-09-28] MEDS ORDERED: MIDAZOLAM 1 MG/ML, 5ML ONE (11:30)
[2017-09-28 16:00] VITALS: BP 145/79
[2017-09-28 18:46] VITALS: BP 154/97
[2017-09-28] MEDS: ATORVASTATIN 80 MG TABLET PO SCH (20:49)
[2017-09-28] MEDS: OXYcodone IR 5MG TABLET PO PRN (22:22)
[2017-09-29 01:08] VITALS: BP 105/71
[2017-09-29] MEDS ORDERED: DIPHENHYDRAMINE 25 MG CAPSULE PO ONE (02:30)
[2017-09-29] MEDS ORDERED: DIPHENHYDRAMINE 12.5MG/5ML, 10ML UDC PO ONE (02:30)
[2017-09-29] MEDS: ONDANSETRON 2MG/ML, 2ML IVPush PRN ×2 (03:39→12:42)
[2017-09-29 06:45] VITALS: BP 129/83
[2017-09-29] MEDS: DOCUSATE 50 MG/5 ML, 10ML UDC PO SCH (08:32)
[2017-09-29] MEDS: SENNOSIDES 8.8 MG/5 ML ORAL SOL PO SCH (08:33)
[2017-09-29] MEDS: INSULIN ASPART 100 UNITS/ML, PEN SQ-INSULIN SCH ×4 (08:40→22:53)
[2017-09-29] MEDS: MECLIZINE CHEWABLE 25 MG TAB PO PRN (08:40)
[2017-09-29] MEDS: INSULIN DETEMIR 100 UNITS/ML, PEN SQ-INSULIN SCH ×2 (08:41→22:53)
[2017-09-29] MEDS: LOSARTAN 50MG TABLET PO SCH ×2 (08:41→22:54)
[2017-09-29] MEDS: POTASSIUM CHLORIDE 20 MEQ TAB.ER.PRT PO SCH (08:41)
[2017-09-29] MEDS: FUROSEMIDE 20 MG TABLET PO SCH (08:41)
[2017-09-29] MEDS: CHOLESTYRAMINE LIGHT 4GM PACKET PO SCH ×2 (08:41→22:52)
[2017-09-29] MEDS: SPIRONOLACTONE 25 MG TABLET PO SCH (08:41)
[2017-09-29] MEDS: FOLIC ACID 1 MG TABLET PO SCH (08:41)
[2017-09-29] MEDS: ASPIRIN 81 MG TABLET CHEW PO SCH (08:41)
[2017-09-29 12:10] VITALS: BP 121/79
[2017-09-29] MEDS: CARVEDILOL 6.25 MG TABLET PO SCH (17:26)
[2017-09-29 19:06] VITALS: BP 134/88
[2017-09-29] MEDS: ATORVASTATIN 80 MG TABLET PO SCH (22:51)
[2017-09-30] MEDS: ONDANSETRON 2MG/ML, 2ML IVPush PRN ×3 (00:37→22:25)
[2017-09-30 01:48] VITALS: BP 109/67
[2017-09-30] MEDS: ACETAMINOPHEN 325 MG TABLET PO PRN ×2 (03:30→22:22)
[2017-09-30] MEDS: MECLIZINE CHEWABLE 25 MG TAB PO PRN (03:30)
[2017-09-30] MEDS: CARVEDILOL 6.25 MG TABLET PO SCH ×2 (05:14→17:15)
[2017-09-30 06:01] LABS: HEMATOCRIT 37.6 % (39.2-51.8)
[2017-09-30 06:10] LABS: BLOOD UREA NITROGEN 15 mg/dL (7-18)
[2017-09-30 06:14] LABS: ASPARTATE AMINO TRANSFERASE 16 U/L (15-37)
[2017-09-30 06:35] VITALS: BP 124/88
[2017-09-30] MEDS: INSULIN ASPART 100 UNITS/ML, PEN SQ-INSULIN SCH ×4 (08:09→22:09)
[2017-09-30] MEDS: FUROSEMIDE 20 MG TABLET PO SCH (08:10)
[2017-09-30] MEDS: DOCUSATE 50 MG/5 ML, 10ML UDC PO SCH ×2 (08:10→09:00)
[2017-09-30] MEDS: POTASSIUM CHLORIDE 20 MEQ TAB.ER.PRT PO SCH (08:10)
[2017-09-30] MEDS: CHOLESTYRAMINE LIGHT 4GM PACKET PO SCH ×2 (08:11→22:05)
[2017-09-30] MEDS: SENNOSIDES 8.8 MG/5 ML ORAL SOL PO SCH ×2 (08:11→09:00)
[2017-09-30] MEDS: FOLIC ACID 1 MG TABLET PO SCH (08:11)
[2017-09-30] MEDS: LOSARTAN 50MG TABLET PO SCH ×2 (08:11→22:06)
[2017-09-30] MEDS: ASPIRIN 81 MG TABLET CHEW PO SCH (08:11)
[2017-09-30] MEDS: SPIRONOLACTONE 25 MG TABLET PO SCH (08:11)
[2017-09-30] MEDS: INSULIN DETEMIR 100 UNITS/ML, PEN SQ-INSULIN SCH ×2 (08:13→15:10)
[2017-09-30] MEDS ORDERED: MAGNESIUM SULFATE PMX 4GM/100M 100 ML IV ONE (09:00)
[2017-09-30 13:44] VITALS: BP 131/74
[2017-09-30 20:01] VITALS: BP 132/84
[2017-09-30] MEDS: ATORVASTATIN 80 MG TABLET PO SCH (22:05)
[2017-09-30] MEDS ORDERED: TEMAZEPAM 15 MG CAPSULE PO PRN (23:00)
[2017-10-01 02:00] VITALS: BP 127/80
[2017-10-01] MEDS: DIPHENOXYLATE/ATROPINE TABLET PO PRN ×3 (02:45→20:35)
[2017-10-01] MEDS: INSULIN DETEMIR 100 UNITS/ML, PEN SQ-INSULIN SCH ×2 (02:50→08:20)
[2017-10-01] MEDS: ONDANSETRON 2MG/ML, 2ML IVPush PRN ×3 (03:59→20:36)
[2017-10-01 06:01] LABS: HEMATOCRIT 40.1 % (39.2-51.8); HEMOGLOBIN 13.7 g/dL (13.7-18.0); WHITE BLOOD COUNT 12.1 x10^3/uL (3.4-10)
[2017-10-01 06:49] LABS: ASPARTATE AMINO TRANSFERASE 17 U/L (15-37); BLOOD UREA NITROGEN 17 mg/dL (7-18)
[2017-10-01] MEDS: CARVEDILOL 6.25 MG TABLET PO SCH ×2 (06:49→18:23)
[2017-10-01] MEDS: INSULIN ASPART 100 UNITS/ML, PEN SQ-INSULIN SCH ×4 (07:00→21:06)
[2017-10-01] MEDS: FUROSEMIDE 20 MG TABLET PO SCH (07:30)
[2017-10-01 07:52] VITALS: BP 155/92
[2017-10-01] MEDS ORDERED: FUROSEMIDE 40 MG TABLET ONE (08:04)
[2017-10-01] MEDS: LOSARTAN 50MG TABLET PO SCH ×2 (08:20→20:38)
[2017-10-01] MEDS: POTASSIUM CHLORIDE 20 MEQ TAB.ER.PRT PO SCH (08:20)
[2017-10-01] MEDS: SPIRONOLACTONE 25 MG TABLET PO SCH (08:21)
[2017-10-01] MEDS: SENNOSIDES 8.8 MG/5 ML ORAL SOL PO SCH (09:00)
[2017-10-01] MEDS: DOCUSATE 50 MG/5 ML, 10ML UDC PO SCH (09:00)
[2017-10-01] MEDS: ASPIRIN 81 MG TABLET CHEW PO SCH (09:00)
[2017-10-01] MEDS: CHOLESTYRAMINE LIGHT 4GM PACKET PO SCH ×2 (09:00→20:35)
[2017-10-01] MEDS: FOLIC ACID 1 MG TABLET PO SCH (09:00)
[2017-10-01 13:58] VITALS: BP 133/84
[2017-10-01] MEDS: ATORVASTATIN 80 MG TABLET PO SCH (20:35)
[2017-10-01 21:00] VITALS: BP 159/94
[2017-10-02 00:40] VITALS: BP 148/76
[2017-10-02] MEDS: ONDANSETRON 2MG/ML, 2ML IVPush PRN ×6 (00:45→22:58)
[2017-10-02] MEDS: MECLIZINE CHEWABLE 25 MG TAB PO PRN ×3 (01:30→18:50)
[2017-10-02] MEDS: INSULIN DETEMIR 100 UNITS/ML, PEN SQ-INSULIN SCH ×2 (01:44→15:52)
[2017-10-02] MEDS: CARVEDILOL 6.25 MG TABLET PO SCH (05:54)
[2017-10-02 08:21] VITALS: BP 161/89
[2017-10-02] MEDS: POTASSIUM CHLORIDE 20 MEQ TAB.ER.PRT PO SCH (08:34)
[2017-10-02] MEDS: DIPHENOXYLATE/ATROPINE TABLET PO PRN (08:34)
[2017-10-02] MEDS: FOLIC ACID 1 MG TABLET PO SCH (08:34)
[2017-10-02] MEDS: SPIRONOLACTONE 25 MG TABLET PO SCH (08:34)
[2017-10-02] MEDS: INSULIN ASPART 100 UNITS/ML, PEN SQ-INSULIN SCH ×4 (08:34→23:08)
[2017-10-02] MEDS: SENNOSIDES 8.8 MG/5 ML ORAL SOL PO SCH (08:34)
[2017-10-02] MEDS: FUROSEMIDE 20 MG TABLET PO SCH (08:34)
[2017-10-02] MEDS: ASPIRIN 81 MG TABLET CHEW PO SCH (08:34)
[2017-10-02] MEDS: LOSARTAN 50MG TABLET PO SCH ×2 (08:34→23:00)
[2017-10-02] MEDS: CHOLESTYRAMINE LIGHT 4GM PACKET PO SCH ×3 (08:34→23:01)
[2017-10-02] MEDS: DOCUSATE 50 MG/5 ML, 10ML UDC PO SCH (08:35)
[2017-10-02 12:27] LABS: HEMATOCRIT 43.8 % (39.2-51.8); HEMOGLOBIN 14.8 g/dL (13.7-18.0); WHITE BLOOD COUNT 14.6 x10^3/uL (3.4-10)
[2017-10-02 12:40] LABS: BLOOD UREA NITROGEN 23 mg/dL (7-18)
[2017-10-02 12:45] LABS: ASPARTATE AMINO TRANSFERASE 13 U/L (15-37)
[2017-10-02 15:20] VITALS: BP 144/88
[2017-10-02] MEDS: CARVEDILOL 12.5 MG TABLET PO SCH (16:26)
[2017-10-02 19:51] VITALS: BP 112/72
[2017-10-02] MEDS: ATORVASTATIN 80 MG TABLET PO SCH (23:00)
[2017-10-03 00:43] VITALS: BP 138/85
[2017-10-03] MEDS: INSULIN DETEMIR 100 UNITS/ML, PEN SQ-INSULIN SCH (02:00)
[2017-10-03] MEDS: ONDANSETRON 2MG/ML, 2ML IVPush PRN ×7 (02:49→23:58)
[2017-10-03] MEDS: CARVEDILOL 12.5 MG TABLET PO SCH ×2 (05:15→16:28)
[2017-10-03] MEDS: MECLIZINE CHEWABLE 25 MG TAB PO PRN ×3 (05:15→19:25)
[2017-10-03 05:51] LABS: HEMATOCRIT 41.5 % (39.2-51.8); HEMOGLOBIN 13.9 g/dL (13.7-18.0); WHITE BLOOD COUNT 14.5 x10^3/uL (3.4-10)
[2017-10-03 06:03] LABS: BLOOD UREA NITROGEN 26 mg/dL (7-18)
[2017-10-03 07:52] VITALS: BP 128/78
[2017-10-03 07:56] VITALS: BP 132/90
[2017-10-03] MEDS ORDERED: MAGNESIUM SULFATE PMX 2GM/50ML 50 ML IV ONE (08:00)
[2017-10-03] MEDS: POTASSIUM CHLORIDE 20 MEQ TAB.ER.PRT PO SCH (08:17)
[2017-10-03] MEDS: SODIUM CHLORIDE 0.9% 1,000 ML IV SCH ×2 (08:17→23:57)
[2017-10-03] MEDS: INSULIN ASPART 100 UNITS/ML, PEN SQ-INSULIN SCH ×4 (08:17→21:06)
[2017-10-03] MEDS: DOCUSATE 50 MG/5 ML, 10ML UDC PO SCH (08:17)
[2017-10-03] MEDS: ASPIRIN 81 MG TABLET CHEW PO SCH (08:17)
[2017-10-03] MEDS: FOLIC ACID 1 MG TABLET PO SCH (08:17)
[2017-10-03] MEDS: SPIRONOLACTONE 25 MG TABLET PO SCH (08:17)
[2017-10-03] MEDS: LOSARTAN 50MG TABLET PO SCH ×2 (08:17→21:00)
[2017-10-03] MEDS: FUROSEMIDE 20 MG TABLET PO SCH (08:17)
[2017-10-03] MEDS: SENNOSIDES 8.8 MG/5 ML ORAL SOL PO SCH (08:18)
[2017-10-03] MEDS: CHOLESTYRAMINE LIGHT 4GM PACKET PO SCH ×2 (08:18→21:04)
[2017-10-03 13:11] VITALS: BP 130/83
[2017-10-03] MEDS: OXYcodone IR 5MG TABLET PO PRN ×2 (14:09→21:03)
[2017-10-03] MEDS: DIPHENOXYLATE/ATROPINE TABLET PO PRN ×2 (14:09→21:03)
[2017-10-03 20:17] VITALS: BP_SYST 95; BP_SYST 99; BP_DIAS 63; BP_DIAS 65
[2017-10-03] MEDS: ATORVASTATIN 80 MG TABLET PO SCH (21:02)
[2017-10-04 00:57] VITALS: BP 111/69
[2017-10-04] MEDS: CARVEDILOL 12.5 MG TABLET PO SCH ×2 (04:11→17:16)
[2017-10-04] MEDS: ONDANSETRON 2MG/ML, 2ML IVPush PRN ×3 (04:11→22:18)
[2017-10-04 05:30] LABS: HEMATOCRIT 39.5 % (39.2-51.8); HEMOGLOBIN 13.6 g/dL (13.7-18.0); WHITE BLOOD COUNT 13.9 x10^3/uL (3.4-10)
[2017-10-04 05:44] LABS: ASPARTATE AMINO TRANSFERASE 17 U/L (15-37); BLOOD UREA NITROGEN 31 mg/dL (7-18)
[2017-10-04 06:40] VITALS: BP 92/58
[2017-10-04] MEDS: FUROSEMIDE 20 MG TABLET PO SCH (07:30)
[2017-10-04] MEDS: DOCUSATE 50 MG/5 ML, 10ML UDC PO SCH (08:19)
[2017-10-04] MEDS: SENNOSIDES 8.8 MG/5 ML ORAL SOL PO SCH (08:20)
[2017-10-04] MEDS: DIPHENOXYLATE/ATROPINE TABLET PO PRN (08:33)
[2017-10-04] MEDS: SPIRONOLACTONE 25 MG TABLET PO SCH (08:34)
[2017-10-04] MEDS: LOSARTAN 50MG TABLET PO SCH ×2 (08:34→20:57)
[2017-10-04] MEDS: FOLIC ACID 1 MG TABLET PO SCH (08:34)
[2017-10-04] MEDS: INSULIN ASPART 100 UNITS/ML, PEN SQ-INSULIN SCH ×4 (08:34→20:51)
[2017-10-04] MEDS: POTASSIUM CHLORIDE 20 MEQ TAB.ER.PRT PO SCH (08:36)
[2017-10-04] MEDS: ASPIRIN 81 MG TABLET CHEW PO SCH (08:36)
[2017-10-04] MEDS: CHOLESTYRAMINE LIGHT 4GM PACKET PO SCH ×2 (08:36→20:47)
[2017-10-04 15:05] VITALS: BP 95/58
[2017-10-04 16:14] VITALS: BP 95/58
[2017-10-04] MEDS: OXYcodone IR 5MG TABLET PO PRN ×2 (16:21→17:16)
[2017-10-04 17:17] VITALS: BP 115/72
[2017-10-04] MEDS ORDERED: ONDANSETRON ODT 4 MG ONE ×2 (17:20→22:16)
[2017-10-04 19:04] VITALS: BP 96/63
[2017-10-04] MEDS: ATORVASTATIN 80 MG TABLET PO SCH (20:47)
[2017-10-05 01:34] VITALS: BP 123/85
[2017-10-05] MEDS: SODIUM CHLORIDE 0.9% 1,000 ML IV SCH (02:06)
[2017-10-05] MEDS: OXYcodone IR 5MG TABLET PO PRN (02:31)
[2017-10-05] MEDS: DIPHENOXYLATE/ATROPINE TABLET PO PRN (02:34)
[2017-10-05 05:23] LABS: ASPARTATE AMINO TRANSFERASE 17 U/L (15-37); BLOOD UREA NITROGEN 32 mg/dL (7-18)
[2017-10-05 05:28] LABS: HEMATOCRIT 38.8 % (39.2-51.8); HEMOGLOBIN 13.2 g/dL (13.7-18.0); WHITE BLOOD COUNT 11.1 x10^3/uL (3.4-10)
[2017-10-05 06:20] VITALS: BP 110/79
[2017-10-05] MEDS: CARVEDILOL 12.5 MG TABLET PO SCH (06:21)
[2017-10-05] MEDS ORDERED: FUROSEMIDE 20 MG TABLET PO SCH (07:30)
[2017-10-05] MEDS: DOCUSATE 50 MG/5 ML, 10ML UDC PO SCH (08:28)
[2017-10-05] MEDS: SENNOSIDES 8.8 MG/5 ML ORAL SOL PO SCH (08:29)
[2017-10-05] MEDS: LOSARTAN 50MG TABLET PO SCH (08:29)
[2017-10-05] MEDS: ASPIRIN 81 MG TABLET CHEW PO SCH (08:34)
[2017-10-05] MEDS: POTASSIUM CHLORIDE 20 MEQ TAB.ER.PRT PO SCH (08:34)
[2017-10-05] MEDS: FOLIC ACID 1 MG TABLET PO SCH (08:34)
[2017-10-05] MEDS: INSULIN ASPART 100 UNITS/ML, PEN SQ-INSULIN SCH (08:35)
== END 2017-10-05 11:10 | disposition left against medical advice (07) | DRG 870 ==
LOC: ED 09:40 → EDIP 11:12 → CCU 12:57 → 5SO 09-22 12:19
PROVIDERS: ADMIT Internal Medicine; ATTEND Internal Medicine
PROC: 0BH18EZ Insertion of Endotracheal Airway into Trachea, Via Natural or Artificial Opening Endoscopic (ICD-10-PCS; principal; 2017-09-15)
PROC: 5A1955Z Respiratory Ventilation, Greater than 96 Consecutive Hours (ICD-10-PCS; 2017-09-15)
PROC: 02HK3JZ Insertion of Pacemaker Lead into Right Ventricle, Percutaneous Approach (ICD-10-PCS; 2017-09-15)
PROC: 4A023N7 Measurement of Cardiac Sampling and Pressure, Left Heart, Percutaneous Approach (ICD-10-PCS; 2017-09-15)
PROC: 03HY32Z Insertion of Monitoring Device into Upper Artery, Percutaneous Approach (ICD-10-PCS; 2017-09-15)
PROC: B2151ZZ Fluoroscopy of Left Heart using Low Osmolar Contrast (ICD-10-PCS; 2017-09-15)
PROC: B2111ZZ Fluoroscopy of Multiple Coronary Arteries using Low Osmolar Contrast (ICD-10-PCS; 2017-09-15)
PROC: 0JH606Z Insertion of Pacemaker, Dual Chamber into Chest Subcutaneous Tissue and Fascia, Open Approach (ICD-10-PCS; 2017-09-15)
PROC: 02H63JZ Insertion of Pacemaker Lead into Right Atrium, Percutaneous Approach (ICD-10-PCS; 2017-09-15)
PROC: 0T9B70Z Drainage of Bladder with Drainage Device, Via Natural or Artificial Opening (ICD-10-PCS; 2017-09-15)
DX: A41.9 Sepsis, unspecified organism (principal); J96.21 Acute and chronic respiratory failure with hypoxia; I21.4 Non-ST elevation (NSTEMI) myocardial infarction; N17.0 Acute kidney failure with tubular necrosis; E43 Unspecified severe protein-calorie malnutrition; E11.10 Type 2 diabetes mellitus with ketoacidosis without coma; G93.41 Metabolic encephalopathy; Z99.11 Dependence on respirator [ventilator] status; J18.9 Pneumonia, unspecified organism; I50.43 Acute on chronic combined systolic (congestive) and diastolic (congestive) heart failure; K85.90 Acute pancreatitis without necrosis or infection, unspecified; E87.0 Hyperosmolality and hypernatremia; F11.20 Opioid dependence, uncomplicated; E87.1 Hypo-osmolality and hyponatremia; J44.0 Chronic obstructive pulmonary disease with (acute) lower respiratory infection; I47.1 Supraventricular tachycardia; E11.42 Type 2 diabetes mellitus with diabetic polyneuropathy; E11.43 Type 2 diabetes mellitus with diabetic autonomic (poly)neuropathy; E87.6 Hypokalemia; F17.210 Nicotine dependence, cigarettes, uncomplicated; G47.33 Obstructive sleep apnea (adult) (pediatric); G89.29 Other chronic pain; E83.42 Hypomagnesemia; F32.9 Major depressive disorder, single episode, unspecified; I11.0 Hypertensive heart disease with heart failure; E78.5 Hyperlipidemia, unspecified; E11.51 Type 2 diabetes mellitus with diabetic peripheral angiopathy without gangrene; I25.5 Ischemic cardiomyopathy; I25.10 Atherosclerotic heart disease of native coronary artery without angina pectoris; I27.20 Pulmonary hypertension, unspecified; I49.5 Sick sinus syndrome; K31.84 Gastroparesis; I07.1 Rheumatic tricuspid insufficiency; E89.0 Postprocedural hypothyroidism; E78.00 Pure hypercholesterolemia, unspecified; D64.9 Anemia, unspecified; K52.9 Noninfective gastroenteritis and colitis, unspecified; I35.8 Other nonrheumatic aortic valve disorders; E86.0 Dehydration; K40.90 Unilateral inguinal hernia, without obstruction or gangrene, not specified as recurrent; Z95.1 Presence of aortocoronary bypass graft; Z91.19 Patient's noncompliance with other medical treatment and regimen; Z91.14 Patient's other noncompliance with medication regimen; Z91.013 Allergy to seafood; Z86.73 Personal history of transient ischemic attack (TIA), and cerebral infarction without residual deficits; Z79.4 Long term (current) use of insulin; I25.2 Old myocardial infarction; Z90.49 Acquired absence of other specified parts of digestive tract; Z68.25 Body mass index [BMI] 25.0-25.9, adult; Z53.21 Procedure and treatment not carried out due to patient leaving prior to being seen by health care provider
CPT/HCPCS: 31500; 33208; 36005; 36415; 36600; 70450; 70553; 71010; 71250; 74000; 74176; 74177; 74230; 76700; 80048; 80053; 80061; 80307; 81001; 82010; 82040; 82140; 82607; 82803; 82962; 83036; 83690; 83735; 84100; 84439; 84443; 84478; 84484; 85025; 85520; 85610; 85730; 87040; 87046; 87070; 87077; 87081; 87186; 87205; 87324; 87899; 93005; 93306; 93458; 93880; 94002; 94003; 94640; 96372; 96374; 96375; 99156; 99157; A9585; C1769; C1779; C1785; C1892; C1894; C8929; J0153; J0583; J0690; J0696; J1644; J1815; J1940; J2250; J2405; J2543; J2704; J3010; J3411; J3480; J3490; J7620; Q9967; C9113; G0479; J0360; J1200; J2060; J2270; J2765; J3475; J7030; J7040; J7050; Q0163; S0028

== ENCOUNTER 2018-02-18 09:15 | Inpatient (IN) | payer MEDICARE ==
[~2018-02-18] VITALS: Ht 193 cm; Wt 99.1 kg
[~2018-02-18 09:15] MED LIST changes: +AMIO200T42 PO; +AMLO10TA2 PO; +ASPI-496 PO; -ASPI-770 PO; +ASPI81TA59 PO; +ATOR-2 PO; +ERYT250T14 MT; +METO25TA35 PO/NG; +POTA20TA6 PO
[2018-02-18] MEDS ORDERED: ASPIRIN 81 MG TABLET CHEW PO ONE (10:00)
[2018-02-18] MEDS ORDERED: SODIUM CHLORIDE 0.9% 1,000ML IVBOLUS ONE ×3 (10:00→12:00)
[2018-02-18 10:27] LABS: BASOPHILS # (AUTO) 0.05 x10^3/uL (0-0.1); BASOPHILS % (AUTO) 0 % (0-1); EOSINOPHILS # (AUTO) 0.09 x10^3/uL (0-0.4); EOSINOPHILS % (AUTO) 1 % (1-7); LYMPHOCYTES # (AUTO) 2.73 x10^3/uL (1-3.4); LYMPHOCYTES % (AUTO) 17 % (22-44); MD NO; MEAN CORPUSCULAR HEMOGLOBIN 26.7 pg (27.5-34.5); MEAN CORPUSCULAR HGB CONC 32.5 g/dL (33.2-36.2); MEAN CORPUSCULAR VOLUME 82.3 fL (81-97); MEAN PLATELET VOLUME 9.2 fL (7.4-10.4); MONOCYTES % (AUTO) 6 % (2-9); NEUTROPHILS # (AUTO) 12.05 x10^3/uL (1.8-6.8); NEUTROPHILS % (AUTO) 76 % (42-75); PLATELET COUNT 260 x10^3/uL (130-400); RED BLOOD COUNT 4.59 x10^6/uL (4.38-5.82); RED CELL DISTRIBUTION WIDTH 15.7 % (9.4-14.8)
[2018-02-18 10:56] LABS: ALANINE AMINOTRANSFERASE 23 U/L (12-78); ALBUMIN 3.9 g/dL (3.4-5.0); ANION GAP 14 mmol/L (5-15); CALCIUM 8.4 mg/dL (8.5-10.1); CHLORIDE 100 mmol/L (98-107); CREATININE 4.65 mg/dL (0.7-1.3)
[2018-02-18 11:01] LABS: ALKALINE PHOSPHATASE 118 U/L (45-117); BILIRUBIN,TOTAL 0.6 mg/dL (0.2-1.0); TOTAL PROTEIN 8.1 g/dL (6.4-8.2); TROPONIN I < 0.015 ng/mL (0.000-0.045)
[2018-02-18] MEDS ORDERED: OXYC10TA6 PO (11:02)
[2018-02-18] MEDS ORDERED: [UNRECOGNIZED DRUG - REMARK] PO (11:02)
[2018-02-18] MEDS ORDERED: ASPIRIN 81 MG TABLET CHEW ONE (11:06)
[2018-02-18] MEDS ORDERED: CEFTRIAXONE PMX 1GM/50ML 50 ML ONE (11:58)
[2018-02-18] MEDS ORDERED: MAGNESIUM SULFATE PMX 4GM/100M 100 ML IV ONE (12:00)
[2018-02-18] MEDS ORDERED: CEFTRIAXONE PMX 1GM/50ML 50 ML IV ONE (12:00)
[2018-02-18] MEDS ORDERED: AZITHROMYCIN 500 MG in SODIUM CHLORIDE 0.9% 250 ML IV ONE (12:00)
[2018-02-18] MEDS ORDERED: ALBUTEROL SULFATE INH SCH ×2 (14:00)
[2018-02-18] MEDS ORDERED: DOCUSATE 100 MG CAPSULE PO PRN (14:00)
[2018-02-18] MEDS ORDERED: ONDANSETRON 2MG/ML, 2ML IVPush PRN (14:00)
[2018-02-18] MEDS ORDERED: ENOXAPARIN 40 MG/0.4 ML SQ SCH (14:00)
[2018-02-18] MEDS ORDERED: FENOFIBRATE MICRONIZED 134 MG HOMEMEDPO SCH (14:00)
[2018-02-18] MEDS ORDERED: ACETAMINOPHEN 325 MG TABLET PO PRN (14:00)
[2018-02-18] MEDS ORDERED: DIAZEPAM 5 MG TABLET PO PRN (14:00)
[2018-02-18] MEDS ORDERED: BISACODYL 10 MG SUPP PR PRN (14:00)
[2018-02-18] MEDS ORDERED: IPRATROPIUM INH SCH (14:00)
[2018-02-18] MEDS ORDERED: hydrALAzine 20 MG/ML, 1ML IVPush PRN (14:00)
[2018-02-18 14:30] LABS: IRON LEVEL 118 mcg/dL (65-175); TOTAL IRON BINDING CAPACITY 421 mcg/dL (250-450)
[2018-02-18 14:31] LABS: % IRON SATURATION 28 % (20-55)
[2018-02-18] MEDS ORDERED: MORPHINE SULFATE 4 MG/ML, 1ML ONE (15:00)
[2018-02-18] MEDS: morphine SULFATE 10 MG/ML, 1ML IVPush PRN (15:11)
[2018-02-18 17:29] VITALS: BP 152/72
[2018-02-18] MEDS: NICOTINE 7 MG/24 HR PATCH.TD24 TD SCH (17:36)
[2018-02-18] MEDS: GABAPENTIN 300 MG CAPSULE PO SCH ×2 (17:37→21:03)
[2018-02-18] MEDS ORDERED: OXYcodone IR 5MG TABLET ONE (20:40)
[2018-02-18] MEDS ORDERED: TIZANIDINE 2MG TABLET ONE (20:40)
[2018-02-18 21:00] VITALS: BP 152/72
[2018-02-18] MEDS ORDERED: FUROSEMIDE 20 MG TABLET PO SCH (21:00)
[2018-02-18] MEDS: (Budesonide/Formoterol Fumarate (Symbicort 160-4.5 Mcg Inhaler INH SCH (21:00)
[2018-02-18] MEDS: TIZANIDINE 4MG TABLET PO SCH (21:02)
[2018-02-18] MEDS: ATORVASTATIN 80 MG TABLET PO SCH (21:03)
[2018-02-18] MEDS: AMIODARONE 200 MG TABLET PO SCH (21:04)
[2018-02-18] MEDS: OXYcodone IR 30 MG TABLET PO SCH (21:04)
[2018-02-18 21:11] VITALS: BP 106/73
[2018-02-18] MEDS: INSULIN GLARGINE 100 UNITS/ML, PEN SQ-INSULIN SCH (22:25)
[2018-02-19 00:53] VITALS: BP 119/80
[2018-02-19 05:11] LABS: BASOPHILS # (AUTO) 0.03 x10^3/uL (0-0.1); BASOPHILS % (AUTO) 0 % (0-1); EOSINOPHILS # (AUTO) 0.26 x10^3/uL (0-0.4); EOSINOPHILS % (AUTO) 3 % (1-7); LYMPHOCYTES # (AUTO) 2.35 x10^3/uL (1-3.4); LYMPHOCYTES % (AUTO) 29 % (22-44); MD NO; MEAN CORPUSCULAR HEMOGLOBIN 27.2 pg (27.5-34.5); MEAN CORPUSCULAR HGB CONC 33.2 g/dL (33.2-36.2); MEAN CORPUSCULAR VOLUME 81.9 fL (81-97); MEAN PLATELET VOLUME 9.3 fL (7.4-10.4); MONOCYTES # (AUTO) 0.72 x10^3/uL (0.2-0.8); MONOCYTES % (AUTO) 9 % (2-9); NEUTROPHILS # (AUTO) 4.75 x10^3/uL (1.8-6.8); NEUTROPHILS % (AUTO) 59 % (42-75); PLATELET COUNT 178 x10^3/uL (130-400); RED BLOOD COUNT 3.69 x10^6/uL (4.38-5.82); RED CELL DISTRIBUTION WIDTH 15.7 % (9.4-14.8)
[2018-02-19 05:16] LABS: CHLORIDE 109 mmol/L (98-107)
[2018-02-19 05:23] LABS: ALANINE AMINOTRANSFERASE 15 U/L (12-78); ALBUMIN 2.9 g/dL (3.4-5.0); ALKALINE PHOSPHATASE 90 U/L (45-117); ANION GAP 8 mmol/L (5-15); BILIRUBIN,TOTAL 0.3 mg/dL (0.2-1.0); CALCIUM 7.8 mg/dL (8.5-10.1); CREATININE 4.49 mg/dL (0.7-1.3); TOTAL PROTEIN 6.3 g/dL (6.4-8.2)
[2018-02-19] MEDS ORDERED: OXYcodone IR 5MG TABLET ONE ×4 (06:08→19:58)
[2018-02-19] MEDS: GABAPENTIN 300 MG CAPSULE PO SCH (06:10)
[2018-02-19] MEDS: OXYcodone IR 30 MG TABLET PO SCH ×4 (06:10→20:01)
[2018-02-19] MEDS: LEVOTHYROXINE 125 MCG TABLET PO SCH (06:11)
[2018-02-19 07:08] VITALS: BP 124/62
[2018-02-19] MEDS ORDERED: TIZANIDINE 2MG TABLET ONE (08:02)
[2018-02-19] MEDS: TIZANIDINE 4MG TABLET PO SCH ×2 (08:06→20:00)
[2018-02-19] MEDS: ASPIRIN 81 MG TABLET EC PO SCH (08:06)
[2018-02-19] MEDS: TAMSULOSIN 0.4 MG CAP.ER.24H PO SCH (08:06)
[2018-02-19 08:07] LABS: CULTURE INDICATED? YES; MICROSCOPIC INDICATED
[2018-02-19] MEDS: SENNA/DOCUSATE TABLET PO SCH (08:08)
[2018-02-19] MEDS: AMIODARONE 200 MG TABLET PO SCH ×2 (08:08→20:01)
[2018-02-19] MEDS: (Budesonide/Formoterol Fumarate (Symbicort 160-4.5 Mcg Inhaler INH SCH ×2 (08:09→20:03)
[2018-02-19] MEDS: morphine SULFATE 10 MG/ML, 1ML IVPush PRN (08:10)
[2018-02-19] MEDS ORDERED: OMEPRAZOLE 20 MG CAPSULE.DR PO SCH (09:00)
[2018-02-19] MEDS ORDERED: POTASSIUM CHLORIDE 20 MEQ TAB.ER.PRT PO SCH (09:00)
[2018-02-19] MEDS: FINASTERIDE 5 MG TABLET PO SCH (09:09)
[2018-02-19] MEDS: INSULIN LISPRO 100 UNITS/ML, PEN SQ-INSULIN SCH ×3 (11:21→20:45)
[2018-02-19 13:48] VITALS: BP 127/67
[2018-02-19] MEDS ORDERED: CEFAZOLIN PMX 1GM/50ML 50 ML ONE (13:56)
[2018-02-19] MEDS ORDERED: MIDAZOLAM 1 MG/ML, 5ML ONE (13:56)
[2018-02-19] MEDS ORDERED: FENTANYL PF 100 MCG/2ML ONE (13:56)
[2018-02-19] MEDS ORDERED: CEFAZOLIN 1,000 MG ONE (13:57)
[2018-02-19] MEDS ORDERED: ENOXAPARIN 30 MG/0.3 ML SQ SCH (14:00)
[2018-02-19] MEDS: IRON SUCROSE COMPLEX 100MG/5ML IV SCH (16:18)
[2018-02-19] MEDS: NICOTINE 7 MG/24 HR PATCH.TD24 TD SCH (16:19)
[2018-02-19 19:07] VITALS: BP_SYST 106; BP_SYST 119; BP_SYST 120; BP_DIAS 47; BP_DIAS 50; BP_DIAS 71
[2018-02-19] MEDS: ATORVASTATIN 80 MG TABLET PO SCH (20:00)
[2018-02-19] MEDS: SODIUM CHLORIDE FLUSH 10ML SYR IVF SCH (20:06)
[2018-02-19] MEDS: INSULIN GLARGINE 100 UNITS/ML, PEN SQ-INSULIN SCH (20:45)
[2018-02-19] MEDS ORDERED: CEFAZOLIN PMX 1GM/50ML 50 ML IVPB SCH (22:00)
[2018-02-19] MEDS: CEFAZOLIN 1,000 MG in DEXTROSE 5% 50 ML IVPB SCH (22:37)
[2018-02-20] MEDS: morphine SULFATE 10 MG/ML, 1ML IVPush PRN (01:03)
[2018-02-20 01:53] VITALS: BP 120/70
[2018-02-20] MEDS ORDERED: OXYcodone IR 5MG TABLET ONE ×3 (06:00→15:47)
[2018-02-20] MEDS: CEFAZOLIN 1,000 MG in DEXTROSE 5% 50 ML IVPB SCH ×3 (06:05→21:02)
[2018-02-20] MEDS: LEVOTHYROXINE 125 MCG TABLET PO SCH (06:05)
[2018-02-20] MEDS: OXYcodone IR 30 MG TABLET PO SCH ×3 (06:06→15:50)
[2018-02-20 06:58] VITALS: BP 143/83
[2018-02-20] MEDS: INSULIN LISPRO 100 UNITS/ML, PEN SQ-INSULIN SCH ×4 (07:48→21:02)
[2018-02-20] MEDS: ASPIRIN 81 MG TABLET EC PO SCH (08:43)
[2018-02-20] MEDS: TAMSULOSIN 0.4 MG CAP.ER.24H PO SCH (08:43)
[2018-02-20] MEDS: SENNA/DOCUSATE TABLET PO SCH (08:43)
[2018-02-20] MEDS: AMIODARONE 200 MG TABLET PO SCH ×2 (08:43→21:00)
[2018-02-20] MEDS: FINASTERIDE 5 MG TABLET PO SCH (08:44)
[2018-02-20] MEDS: SODIUM CHLORIDE FLUSH 10ML SYR IVF SCH ×2 (08:46→21:01)
[2018-02-20] MEDS: TIZANIDINE 4MG TABLET PO SCH ×2 (09:00→21:00)
[2018-02-20] MEDS: (Budesonide/Formoterol Fumarate (Symbicort 160-4.5 Mcg Inhaler INH SCH ×2 (09:00→21:00)
[2018-02-20 09:32] LABS: ALANINE AMINOTRANSFERASE 14 U/L (12-78); ALBUMIN 3.1 g/dL (3.4-5.0); ANION GAP 6 mmol/L (5-15); CALCIUM 8.5 mg/dL (8.5-10.1); CHLORIDE 109 mmol/L (98-107); CREATININE 2.16 mg/dL (0.7-1.3)
[2018-02-20 09:34] LABS: ALKALINE PHOSPHATASE 99 U/L (45-117); BILIRUBIN,TOTAL 0.3 mg/dL (0.2-1.0); TOTAL PROTEIN 6.9 g/dL (6.4-8.2)
[2018-02-20] MEDS: IRON SUCROSE COMPLEX 100MG/5ML IV SCH (09:51)
[2018-02-20] MEDS ORDERED: TIZANIDINE 2MG TABLET ONE ×2 (09:58→20:49)
[2018-02-20 13:55] VITALS: BP 171/84
[2018-02-20] MEDS: NICOTINE 7 MG/24 HR PATCH.TD24 TD SCH (14:20)
[2018-02-20] MEDS ORDERED: ENOXAPARIN 40 MG/0.4 ML SQ SCH (16:00)
[2018-02-20 18:45] VITALS: BP 195/85
[2018-02-20] MEDS: ONDANSETRON ODT 4 MG PO PRN ×2 (18:48→21:15)
[2018-02-20] MEDS ORDERED: hydrALAzine 20 MG/ML, 1ML IV PRN (19:00)
[2018-02-20] MEDS: ATORVASTATIN 80 MG TABLET PO SCH (21:00)
[2018-02-20] MEDS: OXYcodone IR 5MG TABLET PO SCH (21:00)
[2018-02-20] MEDS: INSULIN GLARGINE 100 UNITS/ML, PEN SQ-INSULIN SCH (21:11)
[2018-02-20] MEDS ORDERED: CEFAZOLIN 1,000 MG in DEXTROSE 5% 50 ML IVPB SCH (22:00)
[2018-02-21 04:38] VITALS: BP 160/70
[2018-02-21 04:54] LABS: BASOPHILS # (AUTO) 0.02 x10^3/uL (0-0.1); BASOPHILS % (AUTO) 0 % (0-1); EOSINOPHILS % (AUTO) 4 % (1-7); LYMPHOCYTES # (AUTO) 1.65 x10^3/uL (1-3.4); LYMPHOCYTES % (AUTO) 23 % (22-44); MD NO; MEAN CORPUSCULAR HEMOGLOBIN 26.8 pg (27.5-34.5); MEAN CORPUSCULAR HGB CONC 32.7 g/dL (33.2-36.2); MEAN CORPUSCULAR VOLUME 81.9 fL (81-97); MEAN PLATELET VOLUME 8.7 fL (7.4-10.4); MONOCYTES # (AUTO) 0.49 x10^3/uL (0.2-0.8); MONOCYTES % (AUTO) 7 % (2-9); NEUTROPHILS # (AUTO) 4.77 x10^3/uL (1.8-6.8); NEUTROPHILS % (AUTO) 66 % (42-75); PLATELET COUNT 192 x10^3/uL (130-400); RED BLOOD COUNT 4.03 x10^6/uL (4.38-5.82); RED CELL DISTRIBUTION WIDTH 15.8 % (9.4-14.8)
[2018-02-21 05:08] LABS: ALANINE AMINOTRANSFERASE 10 U/L (12-78); ALBUMIN 3.1 g/dL (3.4-5.0); ANION GAP 4 mmol/L (5-15); CALCIUM 8.6 mg/dL (8.5-10.1); CHLORIDE 108 mmol/L (98-107); CREATININE 1.39 mg/dL (0.7-1.3)
[2018-02-21 05:10] LABS: ALKALINE PHOSPHATASE 101 U/L (45-117); BILIRUBIN,TOTAL 0.5 mg/dL (0.2-1.0); TOTAL PROTEIN 7.1 g/dL (6.4-8.2)
[2018-02-21] MEDS: OXYcodone IR 5MG TABLET PO SCH ×2 (05:17→11:18)
[2018-02-21] MEDS: CEFAZOLIN 1,000 MG in DEXTROSE 5% 50 ML IVPB SCH ×2 (05:17→14:00)
[2018-02-21] MEDS: ONDANSETRON ODT 4 MG PO PRN (05:17)
[2018-02-21] MEDS: LEVOTHYROXINE 125 MCG TABLET PO SCH (05:17)
[2018-02-21] MEDS ORDERED: MAGNESIUM SULFATE PMX 2GM/50ML 50 ML IV ONE (07:30)
[2018-02-21] MEDS ORDERED: METOPROLOL TARTRATE 25 MG TABLET PO SCH (07:30)
[2018-02-21] MEDS ORDERED: ERGOCALCIFEROL 50,000 UNIT CAPSULE PO SCH (07:30)
[2018-02-21] MEDS ORDERED: METO25TA35 PO (08:00)
[2018-02-21] MEDS ORDERED: FERR324T5 PO (08:00)
[2018-02-21] MEDS: IRON SUCROSE COMPLEX 100MG/5ML IV SCH (08:25)
[2018-02-21] MEDS: FINASTERIDE 5 MG TABLET PO SCH (08:25)
[2018-02-21] MEDS: ASPIRIN 81 MG TABLET EC PO SCH (08:26)
[2018-02-21] MEDS: SENNA/DOCUSATE TABLET PO SCH (08:26)
[2018-02-21] MEDS: AMIODARONE 200 MG TABLET PO SCH (08:26)
[2018-02-21] MEDS: TAMSULOSIN 0.4 MG CAP.ER.24H PO SCH (08:26)
[2018-02-21] MEDS: SODIUM CHLORIDE FLUSH 10ML SYR IVF SCH (08:27)
[2018-02-21] MEDS: TIZANIDINE 4MG TABLET PO SCH (08:27)
[2018-02-21] MEDS: (Budesonide/Formoterol Fumarate (Symbicort 160-4.5 Mcg Inhaler INH SCH (08:27)
[2018-02-21] MEDS: INSULIN LISPRO 100 UNITS/ML, PEN SQ-INSULIN SCH ×2 (08:43→11:25)
[2018-02-21 09:17] VITALS: BP 160/86
[2018-02-21] MEDS: NICOTINE 7 MG/24 HR PATCH.TD24 TD SCH (15:13)
[2018-02-21 15:29] VITALS: BP 183/77
[2018-03-01] MEDS ORDERED: NITR100C6 PO (14:28)
[2018-03-01] MEDS ORDERED: NITR100C PO (14:36)
== END 2018-02-21 16:24 | disposition home or self-care (01) | DRG 260 ==
LOC: ED 11:21 → EDIP 12:43 → 5SO 17:00
PROVIDERS: ADMIT Hospitalist; ATTEND Hospitalist
PROC: 02WA3MZ Revision of Cardiac Lead in Heart, Percutaneous Approach (ICD-10-PCS; principal; 2018-02-20)
DX: T82.120A Displacement of cardiac electrode, initial encounter (principal); N17.0 Acute kidney failure with tubular necrosis; E87.2 Acidosis; E44.0 Moderate protein-calorie malnutrition; E11.22 Type 2 diabetes mellitus with diabetic chronic kidney disease; E11.51 Type 2 diabetes mellitus with diabetic peripheral angiopathy without gangrene; I48.0 Paroxysmal atrial fibrillation; E83.39 Other disorders of phosphorus metabolism; E83.42 Hypomagnesemia; E87.1 Hypo-osmolality and hyponatremia; I13.0 Hypertensive heart and chronic kidney disease with heart failure and stage 1 through stage 4 chronic kidney disease, or unspecified chronic kidney disease; K31.84 Gastroparesis; E11.43 Type 2 diabetes mellitus with diabetic autonomic (poly)neuropathy; D50.9 Iron deficiency anemia, unspecified; F17.210 Nicotine dependence, cigarettes, uncomplicated; J44.9 Chronic obstructive pulmonary disease, unspecified; I25.10 Atherosclerotic heart disease of native coronary artery without angina pectoris; E78.00 Pure hypercholesterolemia, unspecified; E78.5 Hyperlipidemia, unspecified; E89.0 Postprocedural hypothyroidism; G89.29 Other chronic pain; I50.9 Heart failure, unspecified; I65.22 Occlusion and stenosis of left carotid artery; I95.2 Hypotension due to drugs; Y71.2 Prosthetic and other implants, materials and accessory cardiovascular devices associated with adverse incidents; K21.9 Gastro-esophageal reflux disease without esophagitis; K52.9 Noninfective gastroenteritis and colitis, unspecified; Z96.652 Presence of left artificial knee joint; N18.3 Chronic kidney disease, stage 3 (moderate); Z68.26 Body mass index [BMI] 26.0-26.9, adult; Z86.73 Personal history of transient ischemic attack (TIA), and cerebral infarction without residual deficits; Z95.1 Presence of aortocoronary bypass graft; Z95.0 Presence of cardiac pacemaker; B95.7 Other staphylococcus as the cause of diseases classified elsewhere; Z90.49 Acquired absence of other specified parts of digestive tract; Z91.013 Allergy to seafood
CPT/HCPCS: 33215; 36415; 71045; 76770; 78582; 80053; 81001; 82306; 82436; 82533; 82570; 82728; 82947; 82962; 83540; 83550; 83605; 83735; 83970; 84100; 84133; 84145; 84155; 84156; 84165; 84166; 84300; 84484; 84550; 85025; 86850; 86870; 86900; 86902; 86922; 86923; 87040; 87077; 87086; 87186; 93005; 93306; 93880; 96365; 96366; 96368; 96375; 99156; J0456; J0690; J0696; J1650; J1756; J2250; J3010; Q0162; A9540; A9558; C9898; J1815; J2270; J3475; J7030; J7050

== ENCOUNTER 2018-08-23 11:33 | Inpatient (IN) | payer MEDICARE ==
[~2018-08-23] VITALS: Ht 193 cm; Wt 87.6 kg
[~2018-08-23 11:33] MED LIST changes: -AMLO10TA2 PO; +AMLO10TA6 PO; -AMLO5TAB2 PO; +AMLO5TAB7 PO; +FERR324T5 PO; -GEMF600T3 PO; +GEMF600T4 PO; +METF850T10 PO; -METF850T2 PO; +METO25TA35 PO; +NITR100C PO; +NITR100C6 PO; +TRAZ-136 PO; -TRAZ50TA18 PO; +[UNRECOGNIZED DRUG - REMARK] PO
[2018-08-23] MEDS ORDERED: SODIUM CHLORIDE FLUSH 10ML SYR IVF ONE (12:00)
[2018-08-23] MEDS ORDERED: ONDANSETRON 2MG/ML, 2ML IVPush ONE (12:00)
[2018-08-23] MEDS ORDERED: FAMOTIDINE 20 MG/2 ML IVP ONE (12:00)
[2018-08-23] MEDS ORDERED: SODIUM CHLORIDE 0.9% 1,000ML IVBOLUS ONE ×2 (12:00→13:00)
[2018-08-23 12:18] LABS: BASOPHILS # (AUTO) 0.04 x10^3/uL (0-0.1); BASOPHILS % (AUTO) 0 % (0-1); EOSINOPHILS # (AUTO) 0.08 x10^3/uL (0-0.4); EOSINOPHILS % (AUTO) 1 % (1-7); LYMPHOCYTES # (AUTO) 2.65 x10^3/uL (1-3.4); LYMPHOCYTES % (AUTO) 24 % (22-44); MD NO; MEAN CORPUSCULAR HEMOGLOBIN 30.2 pg (27.5-34.5); MEAN CORPUSCULAR HGB CONC 33.9 g/dL (33.2-36.2); MEAN CORPUSCULAR VOLUME 89.1 fL (81-97); MONOCYTES % (AUTO) 5 % (2-9); NEUTROPHILS # (AUTO) 7.93 x10^3/uL (1.8-6.8); NEUTROPHILS % (AUTO) 71 % (42-75); PLATELET COUNT 220 x10^3/uL (130-400); RED BLOOD COUNT 5.59 x10^6/uL (4.38-5.82); RED CELL DISTRIBUTION WIDTH 13.8 % (9.4-14.8)
[2018-08-23 12:27] LABS: INTERNATIONAL NORMALIZED RATIO 0.99 (0.93-1.1); PROTHROMBIN TIME 10.2 Seconds (9.6-11.5)
[2018-08-23 12:28] LABS: ALANINE AMINOTRANSFERASE 17 U/L (12-78); ALBUMIN 3.5 g/dL (3.4-5.0); ANION GAP 14 mmol/L (5-15); CALCIUM 8.6 mg/dL (8.5-10.1); CHLORIDE 85 mmol/L (98-107); CREATININE 2.01 mg/dL (0.7-1.3)
[2018-08-23] MEDS ORDERED: ONDANSETRON 2MG/ML, 2ML ONE (12:29)
[2018-08-23] MEDS ORDERED: FAMOTIDINE 20 MG/2 ML ONE (12:29)
[2018-08-23 12:33] LABS: ALKALINE PHOSPHATASE 175 U/L (45-117); BILIRUBIN,TOTAL 0.8 mg/dL (0.2-1.0); TOTAL PROTEIN 7.9 g/dL (6.4-8.2); TROPONIN I < 0.015 ng/mL (0.000-0.045)
[2018-08-23 13:34] LABS: ACETONE, SERUM Moderate(40mg/dL) mg/dL (Negative)
[2018-08-23 13:46] LABS: PH, VENOUS 7.373 pH (7.320-7.420)
[2018-08-23] MEDS ORDERED: MORPHINE SULFATE 4 MG/ML, 1ML ONE (14:20)
[2018-08-23] MEDS: MORPHINE SULFATE 4 MG/ML, 1ML IVPush PRN ×2 (14:24→16:43)
[2018-08-23] MEDS ORDERED: INSULIN REGULAR 100 UNITS/ML, 3ML VIAL ONE (14:46)
[2018-08-23] MEDS ORDERED: INSULIN REGULAR 100 UNITS/ML, 3ML VIAL SQ-INSULIN ONE (15:00)
[2018-08-23] MEDS ORDERED: ONDANSETRON (15:21)
[2018-08-23] MEDS ORDERED: TEMPLATE NON-FORMULARY MED. (Ipratropium/Albuterol Sulfate (Combivent Respimat Inhal Spray INH SCH (15:30)
[2018-08-23] MEDS ORDERED: ONDANSETRON ODT 4 MG PO PRN (15:30)
[2018-08-23] MEDS ORDERED: DEXTROSE 4 GM TAB.CHEW PO PRN (15:30)
[2018-08-23] MEDS ORDERED: TEMPLATE NON-FORMULARY MED. (Albuterol Sulfate (Ventolin Hfa) 18 GM) INH SCH (15:30)
[2018-08-23] MEDS ORDERED: ONDANSETRON 2MG/ML, 2ML IVPush PRN (15:30)
[2018-08-23] MEDS ORDERED: LABETALOL 5MG/ML, 20ML IVPush PRN (15:30)
[2018-08-23] MEDS ORDERED: GLUCAGON 1 MG IM PRN (15:30)
[2018-08-23] MEDS ORDERED: DEXTROSE 50%, 50ML SYRINGE IVPush PRN (15:30)
[2018-08-23] MEDS ORDERED: POLYETHYLENE GLYCOL 17 GM PACKET PO PRN (15:30)
[2018-08-23] MEDS: INSULIN LISPRO 100 UNITS/ML, PEN SQ-INSULIN SCH ×2 (16:00→21:00)
[2018-08-23] MEDS ORDERED: MAALOX/HYOSCYAMINE/LIDOCAINE 45 ML BTL PO ONE (16:00)
[2018-08-23 16:01] LABS: FREE T4 (FREE THYROXINE) 1.66 ng/dL (0.76-1.46)
[2018-08-23 16:22] LABS: HEMOGLOBIN A1C 14.6 % (4.2-6.3)
[2018-08-23] MEDS ORDERED: ALBUTEROL/IPRATROPIUM 2.5MG/0.5MG, 3 ML NPPB PRN (16:30)
[2018-08-23] MEDS: METOPROLOL TARTRATE 25 MG TABLET PO SCH (16:52)
[2018-08-23] MEDS: HEPARIN 5,000 UNITS/ML, 1ML SQ SCH ×2 (16:52→23:55)
[2018-08-23] MEDS: GABAPENTIN 300 MG CAPSULE PO SCH ×2 (16:52→21:46)
[2018-08-23] MEDS: FENOFIBRATE 145 MG TABLET PO SCH (16:53)
[2018-08-23] MEDS: D5%-0.45% NACL 1,000 ML IV SCH ×2 (16:53→23:55)
[2018-08-23] MEDS ORDERED: INSULIN LISPRO 100 UNITS/ML, PEN SQ-INSULIN ONE (17:40)
[2018-08-23] MEDS: OXYcodone IR 5MG TABLET PO PRN (17:53)
[2018-08-23 18:04] VITALS: BP 114/80
[2018-08-23 18:56] VITALS: BP 92/53
[2018-08-23] MEDS ORDERED: ATORVASTATIN 80 MG TABLET PO SCH (21:00)
[2018-08-23] MEDS ORDERED: INSULIN GLARGINE 100 UNITS/ML, PEN SQ-INSULIN SCH (21:00)
[2018-08-23] MEDS: AMIODARONE 200 MG TABLET PO SCH (21:46)
[2018-08-23] MEDS: SODIUM CHLORIDE FLUSH 10ML SYR IVF SCH (21:46)
[2018-08-23 21:48] VITALS: BP 122/80
[2018-08-24] MEDS: OXYcodone IR 5MG TABLET PO PRN ×2 (00:31→09:00)
[2018-08-24 01:55] VITALS: BP 112/61
[2018-08-24 05:04] LABS: BASOPHILS # (AUTO) 0.03 x10^3/uL (0-0.1); BASOPHILS % (AUTO) 0 % (0-1); EOSINOPHILS # (AUTO) 0.26 x10^3/uL (0-0.4); EOSINOPHILS % (AUTO) 3 % (1-7); LYMPHOCYTES # (AUTO) 3.82 x10^3/uL (1-3.4); LYMPHOCYTES % (AUTO) 37 % (22-44); MD NO; MEAN CORPUSCULAR HEMOGLOBIN 30.2 pg (27.5-34.5); MEAN CORPUSCULAR HGB CONC 33.8 g/dL (33.2-36.2); MEAN CORPUSCULAR VOLUME 89.4 fL (81-97); MEAN PLATELET VOLUME 8.6 fL (7.4-10.4); MONOCYTES # (AUTO) 0.48 x10^3/uL (0.2-0.8); MONOCYTES % (AUTO) 5 % (2-9); NEUTROPHILS # (AUTO) 5.69 x10^3/uL (1.8-6.8); NEUTROPHILS % (AUTO) 55 % (42-75); PLATELET COUNT 183 x10^3/uL (130-400); RED BLOOD COUNT 4.54 x10^6/uL (4.38-5.82); RED CELL DISTRIBUTION WIDTH 13.4 % (9.4-14.8)
[2018-08-24 05:15] LABS: ALANINE AMINOTRANSFERASE 13 U/L (12-78); ALBUMIN 2.8 g/dL (3.4-5.0); ANION GAP 4 mmol/L (5-15); CALCIUM 7.9 mg/dL (8.5-10.1); CHLORIDE 98 mmol/L (98-107); CREATININE 1.37 mg/dL (0.7-1.3)
[2018-08-24 05:17] LABS: ALKALINE PHOSPHATASE 121 U/L (45-117); BILIRUBIN,TOTAL 0.4 mg/dL (0.2-1.0)
[2018-08-24] MEDS: D5%-0.45% NACL 1,000 ML IV SCH (05:55)
[2018-08-24] MEDS: METOPROLOL TARTRATE 25 MG TABLET PO SCH (05:56)
[2018-08-24] MEDS ORDERED: LEVOTHYROXINE 125 MCG TABLET PO SCH (06:00)
[2018-08-24] MEDS ORDERED: OMEPRAZOLE 20 MG CAPSULE.DR PO SCH (07:30)
[2018-08-24 07:52] VITALS: BP 122/77
[2018-08-24] MEDS ORDERED: POTASSIUM CHLORIDE 20 MEQ TAB.ER.PRT PO ONE (08:00)
[2018-08-24] MEDS: INSULIN LISPRO 100 UNITS/ML, PEN SQ-INSULIN SCH ×2 (08:12→11:52)
[2018-08-24] MEDS: AMIODARONE 200 MG TABLET PO SCH (08:13)
[2018-08-24] MEDS: GABAPENTIN 300 MG CAPSULE PO SCH ×2 (08:13→11:51)
[2018-08-24] MEDS: FENOFIBRATE 145 MG TABLET PO SCH (08:13)
[2018-08-24] MEDS: HEPARIN 5,000 UNITS/ML, 1ML SQ SCH (08:16)
[2018-08-24] MEDS ORDERED: TAMSULOSIN 0.4 MG CAP.ER.24H PO SCH (09:00)
[2018-08-24] MEDS ORDERED: CLOPIDOGREL 75 MG TABLET PO SCH (09:00)
[2018-08-24] MEDS ORDERED: ASPIRIN 81 MG TABLET EC PO SCH (09:00)
[2018-08-24] MEDS ORDERED: FLUTICASONE/VILANTEROL 200-25MCG/INH INH SCH (09:00)
[2018-08-24] MEDS ORDERED: DULOXETINE 30 MG CAPSULE.DR PO SCH (09:00)
[2018-08-24] MEDS ORDERED: FINASTERIDE 5 MG TABLET PO SCH (09:00)
[2018-08-24] MEDS: SODIUM CHLORIDE FLUSH 10ML SYR IVF SCH (09:00)
[2018-08-24] MEDS ORDERED: SENNA/DOCUSATE TABLET PO SCH (09:00)
[2018-08-24 12:22] VITALS: BP 128/77
[2018-08-24] MEDS ORDERED: METF850T10 PO (12:28)
== END 2018-08-24 13:41 | disposition home or self-care (01) | DRG 682 ==
LOC: ED 14:32 → 3NE 15:07 → DCLOUNGE 08-24 13:33
PROVIDERS: ADMIT Hospitalist; ATTEND Hospitalist
DX: N17.0 Acute kidney failure with tubular necrosis (principal); E11.00 Type 2 diabetes mellitus with hyperosmolarity without nonketotic hyperglycemic-hyperosmolar coma (NKHHC); I50.30 Unspecified diastolic (congestive) heart failure; E87.1 Hypo-osmolality and hyponatremia; D68.69 Other thrombophilia; E11.43 Type 2 diabetes mellitus with diabetic autonomic (poly)neuropathy; E11.65 Type 2 diabetes mellitus with hyperglycemia; K52.9 Noninfective gastroenteritis and colitis, unspecified; I25.10 Atherosclerotic heart disease of native coronary artery without angina pectoris; I11.0 Hypertensive heart disease with heart failure; J44.9 Chronic obstructive pulmonary disease, unspecified; F17.210 Nicotine dependence, cigarettes, uncomplicated; K31.84 Gastroparesis; E86.0 Dehydration; I48.0 Paroxysmal atrial fibrillation; R29.6 Repeated falls; Z96.652 Presence of left artificial knee joint; G89.29 Other chronic pain; E03.9 Hypothyroidism, unspecified; D72.829 Elevated white blood cell count, unspecified; Z91.013 Allergy to seafood; Z86.73 Personal history of transient ischemic attack (TIA), and cerebral infarction without residual deficits; Z95.1 Presence of aortocoronary bypass graft; Z95.0 Presence of cardiac pacemaker; Z79.899 Other long term (current) drug therapy
CPT/HCPCS: 36415; 71045; 74021; 80053; 82010; 82803; 82962; 83036; 83690; 83735; 84100; 84439; 84484; 85025; 85610; 85730; 93005; 96361; 96372; 96374; 96375; G0378; J1644; J2405; J1815; J7030; S0028

== ENCOUNTER 2018-09-30 13:49 | Inpatient (IN) | payer MEDICARE ==
[~2018-09-30] VITALS: Ht 177.8 cm; Wt 89.2 kg
[~2018-09-30 13:49] MED LIST changes: +AMLO-150 PO; -AMLO5TAB7 PO; +ONDANSETRON; -TRAZ-136 PO; +TRAZ50TA66 PO
[2018-09-30] MEDS ORDERED: DILTIAZEM 5 MG/ML, 5ML ONE (14:20)
[2018-09-30] MEDS ORDERED: DILTIAZEM 5 MG/ML, 5ML IVPush ONE (14:30)
[2018-09-30] MEDS ORDERED: SODIUM CHLORIDE FLUSH 10ML SYR IVF ONE (14:30)
[2018-09-30] MEDS ORDERED: SODIUM CHLORIDE 0.9% 1,000ML IVBOLUS ONE ×2 (14:30→15:30)
[2018-09-30 15:05] LABS: MEAN CORPUSCULAR VOLUME 90.7 fL (81-97); MEAN PLATELET VOLUME 9.4 fL (7.4-10.4); PLATELET COUNT 296 x10^3/uL (130-400); RED BLOOD COUNT 5.47 x10^6/uL (4.38-5.82); RED CELL DISTRIBUTION WIDTH 13.6 % (9.4-14.8)
[2018-09-30 15:17] LABS: ALBUMIN 3.5 g/dL (3.4-5.0); ANION GAP 29 mmol/L (5-15); CALCIUM 8.5 mg/dL (8.5-10.1); CHLORIDE 95 mmol/L (98-107)
[2018-09-30 15:22] LABS: ALANINE AMINOTRANSFERASE 17 U/L (12-78); ALKALINE PHOSPHATASE 175 U/L (45-117); BILIRUBIN,TOTAL 0.7 mg/dL (0.2-1.0); CREATININE 2.13 mg/dL (0.7-1.3); TOTAL PROTEIN 8.1 g/dL (6.4-8.2); TROPONIN I 0.024 ng/mL (0.000-0.045)
[2018-09-30 15:24] LABS: INTERNATIONAL NORMALIZED RATIO 0.96 (0.93-1.1); PROTHROMBIN TIME 10.2 Seconds (9.6-11.5)
[2018-09-30 15:28] LABS: BASOPHILS # (AUTO) 0.06 x10^3/uL (0-0.1); BASOPHILS % (AUTO) 0 % (0-1); EOSINOPHILS % (AUTO) 1 % (1-7); LYMPHOCYTES # (AUTO) 2.73 x10^3/uL (1-3.4); LYMPHOCYTES % (AUTO) 14 % (22-44); MONOCYTES # (AUTO) 0.13 x10^3/uL (0.2-0.8); MONOCYTES % (AUTO) 1 % (2-9); NEUTROPHILS # (AUTO) 16.89 x10^3/uL (1.8-6.8); NEUTROPHILS % (AUTO) 85 % (42-75)
[2018-09-30 15:29] LABS: MD SCAN
[2018-09-30] MEDS ORDERED: REGULAR INSULIN 62.5 UNITS in SODIUM CHLORIDE 0.9% 249.375 ML IV PRN (15:34)
[2018-09-30] MEDS ORDERED: REGULAR INSULIN 62.5 UNITS in SODIUM CHLORIDE 0.9% 249.375 ML IV ONE (15:37)
[2018-09-30 15:48] LABS: PH, VENOUS 7.175 pH (7.320-7.420)
[2018-09-30 16:04] LABS: MICROSCOPIC AUTO
[2018-09-30 16:07] LABS: CULTURE INDICATED? NO
[2018-09-30 16:23] LABS: ACETONE, SERUM Large (80mg/dL) mg/dL (Negative)
[2018-09-30] MEDS ORDERED: D5%-0.45% NACL 1,000 ML IV SCH (16:34)
[2018-09-30] MEDS ORDERED: BISACODYL 10 MG SUPP PR PRN (17:00)
[2018-09-30] MEDS ORDERED: ACETAMINOPHEN 325 MG TABLET PO PRN (17:00)
[2018-09-30] MEDS ORDERED: ONDANSETRON ODT 4 MG PO PRN (17:00)
[2018-09-30] MEDS ORDERED: POLYETHYLENE GLYCOL 17 GM PACKET PO PRN (17:00)
[2018-09-30] MEDS: D5%-0.45NACL+KCL 20MEQ 1,000 ML IV SCH (17:30)
[2018-09-30] MEDS: ONDANSETRON 2MG/ML, 2ML IVPush PRN (17:52)
[2018-09-30] MEDS: NS + 20MEQ KCL 1,000 ML IV SCH (18:01)
[2018-09-30] MEDS: ENOXAPARIN 40 MG/0.4 ML SQ SCH (18:09)
[2018-09-30 18:28] LABS: ANION GAP 26 mmol/L (5-15); CALCIUM 8.4 mg/dL (8.5-10.1); CHLORIDE 98 mmol/L (98-107); CREATININE 2.11 mg/dL (0.7-1.3)
[2018-09-30 18:40] LABS: THYROID STIMULATING HORMONE 0.073 mIU/L (0.358-3.740)
[2018-09-30 21:51] VITALS: BP 173/91
[2018-09-30 22:26] LABS: ANION GAP 20 mmol/L (5-15); CALCIUM 8.5 mg/dL (8.5-10.1); CHLORIDE 106 mmol/L (98-107); CREATININE 2.06 mg/dL (0.7-1.3)
[2018-10-01] MEDS: D5%-0.45NACL+KCL 20MEQ 1,000 ML IV SCH ×2 (00:10→05:35)
[2018-10-01] MEDS: REGULAR INSULIN 62.5 UNITS in SODIUM CHLORIDE 0.9% 249.375 ML IV PRN ×2 (00:36→05:14)
[2018-10-01] MEDS: NS + 20MEQ KCL 1,000 ML IV SCH (00:38)
[2018-10-01] MEDS: LABETALOL 5MG/ML, 20ML IVPush PRN ×6 (00:47→21:31)
[2018-10-01 02:34] LABS: ANION GAP 15 mmol/L (5-15); CALCIUM 8.1 mg/dL (8.5-10.1); CHLORIDE 111 mmol/L (98-107); CREATININE 1.93 mg/dL (0.7-1.3)
[2018-10-01 04:24] LABS: MEAN CORPUSCULAR HEMOGLOBIN 30.8 pg (27.5-34.5); MEAN CORPUSCULAR HGB CONC 34.5 g/dL (33.2-36.2); MEAN CORPUSCULAR VOLUME 89.1 fL (81-97); MEAN PLATELET VOLUME 8.8 fL (7.4-10.4); PLATELET COUNT 222 x10^3/uL (130-400); RED BLOOD COUNT 4.57 x10^6/uL (4.38-5.82); RED CELL DISTRIBUTION WIDTH 13.9 % (9.4-14.8)
[2018-10-01 04:30] LABS: ALANINE AMINOTRANSFERASE 16 U/L (12-78); ANION GAP 10 mmol/L (5-15); CHLORIDE 118 mmol/L (98-107); CREATININE 1.77 mg/dL (0.7-1.3)
[2018-10-01 04:33] LABS: ALKALINE PHOSPHATASE 141 U/L (45-117); BILIRUBIN,TOTAL 0.3 mg/dL (0.2-1.0); CHOL/HDL RATIO 4.4; CHOLESTEROL, TOTAL 133 mg/dL (140-239); HDL CHOL % 23 % (26-37); HDL CHOLESTEROL (DIRECT) 30 mg/dL (40-60); LDL CHOLESTEROL,CALCULATED 60 mg/dL (54-169); TOTAL PROTEIN 6.8 g/dL (6.4-8.2); TRIGLYCERIDES 217 mg/dL (50-200); VLDL CHOLESTEROL 43 mg/dL (0-25)
[2018-10-01 04:49] LABS: BASOPHILS # (AUTO) 0.19 x10^3/uL (0-0.1); BASOPHILS % (AUTO) 1 % (0-1); EOSINOPHILS # (AUTO) 0.01 x10^3/uL (0-0.4); EOSINOPHILS % (AUTO) 0 % (1-7); LYMPHOCYTES # (AUTO) 2.42 x10^3/uL (1-3.4); LYMPHOCYTES % (AUTO) 13 % (22-44); MD SCAN; MONOCYTES # (AUTO) 0.74 x10^3/uL (0.2-0.8); MONOCYTES % (AUTO) 4 % (2-9); NEUTROPHILS # (AUTO) 15.63 x10^3/uL (1.8-6.8); NEUTROPHILS % (AUTO) 82 % (42-75)
[2018-10-01] MEDS ORDERED: LEVOTHYROXINE 125 MCG TABLET PO SCH ×2 (06:00→10:30)
[2018-10-01] MEDS ORDERED: TAMSULOSIN 0.4 MG CAP.ER.24H PO SCH (09:00)
[2018-10-01] MEDS: SENNA/DOCUSATE TABLET PO SCH (09:00)
[2018-10-01] MEDS ORDERED: POTASSIUM PHOSPHATE 44 MEQ in SODIUM CHLORIDE 0.9% 500 ML IV ONE (09:00)
[2018-10-01] MEDS ORDERED: LEVOTHYROXINE 100 MCG INJ IVPush SCH (09:00)
[2018-10-01] MEDS ORDERED: BUDE10.2 INH (09:49)
[2018-10-01] MEDS ORDERED: ONDA4TAB7 PO (09:59)
[2018-10-01] MEDS ORDERED: OMEP40CA6 PO (09:59)
[2018-10-01] MEDS ORDERED: INSU100V8 SQ (09:59)
[2018-10-01] MEDS ORDERED: FINA5TAB4 PO (09:59)
[2018-10-01] MEDS ORDERED: TAMS-11 PO (09:59)
[2018-10-01] MEDS ORDERED: GABA600T2 PO (09:59)
[2018-10-01] MEDS ORDERED: DULO60CA7 PO (09:59)
[2018-10-01] MEDS ORDERED: PROM25TA10 PO (09:59)
[2018-10-01] MEDS ORDERED: OXYC10TA6 PO (09:59)
[2018-10-01] MEDS ORDERED: ALBU18HF INH (09:59)
[2018-10-01] MEDS ORDERED: ATOR-2 PO (09:59)
[2018-10-01] MEDS ORDERED: CLOP75TA52 PO (09:59)
[2018-10-01] MEDS ORDERED: TIZA4TAB PO (09:59)
[2018-10-01] MEDS ORDERED: METO25TA35 PO (09:59)
[2018-10-01] MEDS ORDERED: LEVO125T5 PO (09:59)
[2018-10-01] MEDS ORDERED: INSU100C SQ-INSULIN (09:59)
[2018-10-01] MEDS ORDERED: INSULIN LISPRO 100 UNITS/ML, PEN ONE (10:21)
[2018-10-01] MEDS ORDERED: INSULIN GLARGINE 100 UNITS/ML, PEN ONE (10:21)
[2018-10-01] MEDS: INSULIN LISPRO 100 UNITS/ML, PEN SQ-INSULIN SCH ×4 (10:22→22:08)
[2018-10-01] MEDS: INSULIN GLARGINE 100 UNITS/ML, PEN SQ-INSULIN SCH ×2 (10:22→22:08)
[2018-10-01] MEDS: LEVOTHYROXINE 100 MCG TABLET PO SCH (10:30)
[2018-10-01] MEDS ORDERED: TIZANIDINE 4MG TABLET PO PRN (10:30)
[2018-10-01] MEDS ORDERED: ONDANSETRON 4 MG TABLET PO PRN (10:30)
[2018-10-01] MEDS: DULOXETINE 30 MG CAPSULE.DR PO SCH (10:53)
[2018-10-01] MEDS: OMEPRAZOLE 20 MG CAPSULE.DR PO SCH (10:54)
[2018-10-01] MEDS: FINASTERIDE 5 MG TABLET PO SCH (10:54)
[2018-10-01] MEDS: CLOPIDOGREL 75 MG TABLET PO SCH (10:54)
[2018-10-01] MEDS: METOPROLOL TARTRATE 25 MG TABLET PO SCH ×2 (10:54→20:10)
[2018-10-01] MEDS ORDERED: ALBUTEROL SULFATE 2.5 MG/3 ML HHN SCH (11:00)
[2018-10-01] MEDS: TAMSULOSIN 0.4 MG CAP.ER.24H PO SCH (11:04)
[2018-10-01] MEDS: BUDESONIDE 0.5 MG/2 ML INHA HHN SCH ×2 (13:30→19:59)
[2018-10-01] MEDS: ALBUTEROL SULFATE 2.5 MG/3 ML HHN SCH ×2 (13:30→19:59)
[2018-10-01] MEDS: ENOXAPARIN 40 MG/0.4 ML SQ SCH (17:51)
[2018-10-01] MEDS: ATORVASTATIN 80 MG TABLET PO SCH (20:09)
[2018-10-02] MEDS: INSULIN LISPRO 100 UNITS/ML, PEN SQ-INSULIN SCH ×5 (02:07→20:09)
[2018-10-02] MEDS: ALBUTEROL SULFATE 2.5 MG/3 ML HHN SCH ×4 (02:39→20:53)
[2018-10-02 04:16] LABS: BASOPHILS # (AUTO) 0.09 x10^3/uL (0-0.1); BASOPHILS % (AUTO) 1 % (0-1); EOSINOPHILS # (AUTO) 0.07 x10^3/uL (0-0.4); EOSINOPHILS % (AUTO) 0 % (1-7); LYMPHOCYTES # (AUTO) 2.39 x10^3/uL (1-3.4); LYMPHOCYTES % (AUTO) 14 % (22-44); MD NO; MEAN CORPUSCULAR HEMOGLOBIN 29.8 pg (27.5-34.5); MEAN CORPUSCULAR HGB CONC 33.5 g/dL (33.2-36.2); MEAN CORPUSCULAR VOLUME 89.2 fL (81-97); MEAN PLATELET VOLUME 8.1 fL (7.4-10.4); MONOCYTES # (AUTO) 0.52 x10^3/uL (0.2-0.8); MONOCYTES % (AUTO) 3 % (2-9); NEUTROPHILS # (AUTO) 14.21 x10^3/uL (1.8-6.8); NEUTROPHILS % (AUTO) 82 % (42-75); PLATELET COUNT 187 x10^3/uL (130-400); RED BLOOD COUNT 4.22 x10^6/uL (4.38-5.82); RED CELL DISTRIBUTION WIDTH 13.6 % (9.4-14.8)
[2018-10-02 04:24] VITALS: BP 125/55
[2018-10-02 04:28] LABS: ALANINE AMINOTRANSFERASE 16 U/L (12-78); ALBUMIN 2.9 g/dL (3.4-5.0); ANION GAP 8 mmol/L (5-15); CALCIUM 7.5 mg/dL (8.5-10.1); CHLORIDE 109 mmol/L (98-107); CREATININE 1.15 mg/dL (0.7-1.3)
[2018-10-02 04:30] LABS: ALKALINE PHOSPHATASE 114 U/L (45-117); BILIRUBIN,TOTAL 0.5 mg/dL (0.2-1.0); TOTAL PROTEIN 6.2 g/dL (6.4-8.2)
[2018-10-02] MEDS: ONDANSETRON 2MG/ML, 2ML IVPush PRN (05:51)
[2018-10-02] MEDS ORDERED: POTASSIUM CHLORIDE 20 MEQ TAB.ER.PRT PO ONE (06:30)
[2018-10-02] MEDS ORDERED: POTASSIUM PHOSPHATE 44 MEQ in SODIUM CHLORIDE 0.9% 500 ML IV ONE (06:30)
[2018-10-02] MEDS ORDERED: MAGNESIUM SULFATE PMX 2GM/50ML 50 ML IV ONE (06:30)
[2018-10-02] MEDS: OMEPRAZOLE 20 MG CAPSULE.DR PO SCH (07:55)
[2018-10-02] MEDS: TAMSULOSIN 0.4 MG CAP.ER.24H PO SCH (07:55)
[2018-10-02] MEDS: DULOXETINE 30 MG CAPSULE.DR PO SCH (07:55)
[2018-10-02] MEDS: LEVOTHYROXINE 100 MCG TABLET PO SCH (07:56)
[2018-10-02] MEDS: SENNA/DOCUSATE TABLET PO SCH (07:56)
[2018-10-02] MEDS: METOPROLOL TARTRATE 25 MG TABLET PO SCH ×2 (07:56→20:09)
[2018-10-02] MEDS: CLOPIDOGREL 75 MG TABLET PO SCH (07:56)
[2018-10-02] MEDS: FINASTERIDE 5 MG TABLET PO SCH (07:58)
[2018-10-02 08:00] VITALS: BP 128/61
[2018-10-02] MEDS: BUDESONIDE 0.5 MG/2 ML INHA HHN SCH ×2 (08:50→20:53)
[2018-10-02] MEDS: INSULIN GLARGINE 100 UNITS/ML, PEN SQ-INSULIN SCH ×2 (10:52→23:25)
[2018-10-02 13:04] VITALS: BP 129/70
[2018-10-02] MEDS: ENOXAPARIN 40 MG/0.4 ML SQ SCH (18:04)
[2018-10-02 20:00] VITALS: BP 122/76
[2018-10-02] MEDS: ATORVASTATIN 80 MG TABLET PO SCH (20:09)
[2018-10-03] MEDS: ONDANSETRON 2MG/ML, 2ML IVPush PRN (00:18)
[2018-10-03 00:36] VITALS: BP 133/89
[2018-10-03] MEDS: ALBUTEROL SULFATE 2.5 MG/3 ML HHN SCH ×2 (01:30→09:30)
[2018-10-03 05:10] LABS: ALANINE AMINOTRANSFERASE 15 U/L (12-78); ALBUMIN 3.2 g/dL (3.4-5.0); ANION GAP 8 mmol/L (5-15); CALCIUM 7.9 mg/dL (8.5-10.1); CHLORIDE 108 mmol/L (98-107); CREATININE 0.84 mg/dL (0.7-1.3)
[2018-10-03 05:11] LABS: ALKALINE PHOSPHATASE 130 U/L (45-117); BILIRUBIN,TOTAL 0.7 mg/dL (0.2-1.0); TOTAL PROTEIN 6.6 g/dL (6.4-8.2)
[2018-10-03 05:46] LABS: BASOPHILS # (AUTO) 0.02 x10^3/uL (0-0.1); BASOPHILS % (AUTO) 0 % (0-1); EOSINOPHILS % (AUTO) 0 % (1-7); LYMPHOCYTES # (AUTO) 2.45 x10^3/uL (1-3.4); LYMPHOCYTES % (AUTO) 25 % (22-44); MD NO; MEAN CORPUSCULAR HEMOGLOBIN 31.3 pg (27.5-34.5); MEAN CORPUSCULAR HGB CONC 34.7 g/dL (33.2-36.2); MEAN CORPUSCULAR VOLUME 90.2 fL (81-97); MEAN PLATELET VOLUME 8.9 fL (7.4-10.4); MONOCYTES # (AUTO) 0.42 x10^3/uL (0.2-0.8); MONOCYTES % (AUTO) 4 % (2-9); NEUTROPHILS # (AUTO) 6.86 x10^3/uL (1.8-6.8); NEUTROPHILS % (AUTO) 70 % (42-75); PLATELET COUNT 162 x10^3/uL (130-400); RED BLOOD COUNT 4.07 x10^6/uL (4.38-5.82); RED CELL DISTRIBUTION WIDTH 13.7 % (9.4-14.8)
[2018-10-03 06:51] VITALS: BP_SYST 191; BP_SYST 204; BP_DIAS 104; BP_DIAS 108
[2018-10-03] MEDS: METOPROLOL TARTRATE 25 MG TABLET PO SCH (07:16)
[2018-10-03] MEDS: INSULIN LISPRO 100 UNITS/ML, PEN SQ-INSULIN SCH ×2 (07:29→12:24)
[2018-10-03] MEDS ORDERED: LACTOBACILLUS CHEW TABLET PO SCH (09:00)
[2018-10-03] MEDS: LEVOTHYROXINE 100 MCG TABLET PO SCH (09:00)
[2018-10-03] MEDS: CLOPIDOGREL 75 MG TABLET PO SCH (09:19)
[2018-10-03] MEDS: OMEPRAZOLE 20 MG CAPSULE.DR PO SCH (09:19)
[2018-10-03] MEDS: DULOXETINE 30 MG CAPSULE.DR PO SCH (09:20)
[2018-10-03] MEDS: TAMSULOSIN 0.4 MG CAP.ER.24H PO SCH (09:20)
[2018-10-03] MEDS: FINASTERIDE 5 MG TABLET PO SCH (09:20)
[2018-10-03] MEDS: SENNA/DOCUSATE TABLET PO SCH (09:20)
[2018-10-03 10:00] VITALS: BP 149/89
[2018-10-03] MEDS: INSULIN GLARGINE 100 UNITS/ML, PEN SQ-INSULIN SCH (12:23)
[2018-10-03] MEDS ORDERED: CARVEDILOL 6.25 MG TABLET PO SCH (18:00)
== END 2018-10-03 15:03 | disposition left against medical advice (07) | DRG 637 ==
LOC: ED 14:51 → EDIP 15:39 → CCU 17:23 → 4WST 10-02 12:26
PROVIDERS: ADMIT Internal Medicine; ATTEND Internal Medicine
PROC: 0T9B70Z Drainage of Bladder with Drainage Device, Via Natural or Artificial Opening (ICD-10-PCS; principal; 2018-09-30)
DX: E11.10 Type 2 diabetes mellitus with ketoacidosis without coma (principal); G93.41 Metabolic encephalopathy; N17.9 Acute kidney failure, unspecified; F11.20 Opioid dependence, uncomplicated; I50.30 Unspecified diastolic (congestive) heart failure; D72.828 Other elevated white blood cell count; E11.42 Type 2 diabetes mellitus with diabetic polyneuropathy; E11.43 Type 2 diabetes mellitus with diabetic autonomic (poly)neuropathy; E89.0 Postprocedural hypothyroidism; E78.5 Hyperlipidemia, unspecified; F17.210 Nicotine dependence, cigarettes, uncomplicated; F32.9 Major depressive disorder, single episode, unspecified; G47.00 Insomnia, unspecified; G47.33 Obstructive sleep apnea (adult) (pediatric); I11.0 Hypertensive heart disease with heart failure; I25.10 Atherosclerotic heart disease of native coronary artery without angina pectoris; I25.2 Old myocardial infarction; I45.10 Unspecified right bundle-branch block; R00.0 Tachycardia, unspecified; F41.9 Anxiety disorder, unspecified; I48.0 Paroxysmal atrial fibrillation; J44.9 Chronic obstructive pulmonary disease, unspecified; K31.84 Gastroparesis; Z53.21 Procedure and treatment not carried out due to patient leaving prior to being seen by health care provider; Z86.73 Personal history of transient ischemic attack (TIA), and cerebral infarction without residual deficits; Z91.81 History of falling; Z95.1 Presence of aortocoronary bypass graft; Z99.81 Dependence on supplemental oxygen; Z90.49 Acquired absence of other specified parts of digestive tract; Z91.013 Allergy to seafood
CPT/HCPCS: 36415; 70450; 71045; 80048; 80053; 80061; 81001; 82010; 82140; 82803; 82947; 82962; 83036; 83605; 83690; 83735; 84100; 84443; 84484; 85025; 85610; 87040; 87081; 93005; 94640; 96361; 96365; 96375; 99291; G0378; J1650; J1815; J2405; J3480; J7613; J7626; Q0162; J3475; J7030; J7040; J7050